=== PATIENT | male | born 1965 | race Caucasian/White ===

== ENCOUNTER 2017-01-17 03:20 | Inpatient (IN) ==
[2017-01-17] MEDS ORDERED: BENTYL IM ONE (04:06)
[2017-01-17 04:24] LABS: MANUAL DIFF NEEDED? NO
[2017-01-17 04:28] LABS: BASO% 0.4 % (0.0-0.8); EOS# 0.01 X1000 (0.0-0.7); EOS% 0.1 % (0.0-10.0); HEMATOCRIT 34.3 % (42.0-52.0); HEMOGLOBIN 11.2 g/dL (14.0-18.0); IMM GRAN# 0.02 X1000 (0.0-0.04); IMM GRAN% 0.2 % (0.0-0.5); LYMPH# 0.56 X1000 (1.2-3.4); LYMPH% 6.7 % (20.5-51.1); MCH 27.9 PG (27-31); MCHC 32.7 g/dL (33-37); MCV 85.3 FL (81-99); MONO# 0.74 X1000 (0.11-0.59); MONO% 8.8 % (1.7-9.3); MPV 9.3 FL (7.4-10.4); NEUT% 83.8 % (42.2-75.2); PLT 415 X1000 (130-400); RBC 4.02 XMIL (4.7-6.1)
[2017-01-17] MEDS ORDERED: ZOFRAN IV ONE (04:48)
[2017-01-17 04:55] LABS: AGAP 24; ALBUMIN 3.8 g/dL (3.5-5.0); ALKALINE PHOSPHATASE 112 U/L (32-122); BUN 15 mg/dL (8-22); CALCIUM 9.5 mg/dL (8.8-10.2); CHLORIDE 83 mmol/L (98-107); COSMO 273; GOT 28 U/L (10-34); GPT 27 U/L (10-44); POTASSIUM 3.1 mmol/L (3.5-5.1); SODIUM 135 mmol/L (136-145); TCO2 28 mmol/L (25-35); TOTAL BILIRUBIN 0.51 mg/dL (0.20-1.00); TOTAL PROTEIN 8.1 g/dL (6.3-8.3)
[2017-01-17] MEDS ORDERED: NS 1,000 ML IV ONE (04:55)
[2017-01-17] MEDS ORDERED: NS + KCL 20 MEQ 1,000 ML IV ONE (06:21)
--- NOTE | 2017-01-17 06:29 | PROVIDER DOCUMENTATION ---
This chart was entered by Rancho Garcia Scribe, acting as scribe for Abhijeet Cruz MD. HPI-Abdominal Pain/GI Problem <Montana Graf - Last Filed: 01/17/17 17:43> - General Source: patient - History of Present Illness-ABD Nature of Presenting Problems: Pt is a 51 yom who presents to ER via EMS with CC of abdominal cramping and feeding tube leakage x3 days. Pt reports that it feels as though there is a knot in his stomach and every time he tries to push food/water through his feeding tube, everything leaks out around the site of his feeding tube. Pt has not had a bm in 2 days and has not had significant nutrition x4 days. Abdominal Pain Onset Location: reports: generalized abdomen Pain Radiation: reports: no radiation Quality of Pain: reports: aching, cramping Severity in ED: reports: severe Onset/Duration: reports: 4 days ago Timing: reports: still present Associated Symptoms: reports: anxiety, constipation, swelling/mass in abdomen, weakness. denies: arm pain, back/neck pain, chest pain, cough, diaphoresis, diarrhea, dizziness, EENT symptoms, fatigue, fever/chills, genitourinary problems, headaches, heartburn, joint pain, loss of appetite, malaise, muscle aches, sinus congestion/drainage, nausea, rash, seizure, shortness of breath, sensory/motor loss, pain with inspiration, syncope, vomiting, trouble walking Last BM: 4 days ago Dark Stools Present?: reports: none noticed Rectal Bleeding: reports: none Rectal Pain: reports: none <Abhijeet Cruz - Last Filed: 02/11/17 16:31> - General Chief Complaint: General Adult Stated Complaint: PEG tube leaking x2 days Time Seen by Provider: 01/17/17 03:49 Allergies/Adverse Reactions: Patient Allergies Allergy/AdvReac Type Severity Reaction Status Date / Time codeine Allergy Mild HIVES Verified 01/17/17 04:21 Sulfa (Sulfonamide Allergy Mild ITCHING Verified 01/17/17 04:21 Antibiotics) Home Medications: Home Medication List Medication Instructions Recorded Confirmed Last Taken Type Mirtazapine [Remeron] 30 mg PO QHS #0 tablet 09/15/16 01/17/17 01/16/17 Rx Temazepam [Restoril] 15 mg PO QHS #0 capsule 09/15/16 01/17/17 01/16/17 Rx Amiodarone [Cordarone] 200 mg PO DIRECTED 11/21/16 01/17/17 01/16/17 History Hydromorphone HCl [Dilaudid SECONDARY ENGLISH TEACHER 6 mg IV DIRECTED PRN PRN 01/17/17 01/17/17 History Vial] Ondansetron [Zofran Odt] 1 tab PO PRN PRN 01/17/17 01/17/17 01/16/17 History Promethazine [Phenergan] 1 tab PO PRN PRN 01/17/17 01/17/17 01/16/17 History Digoxin 125 mcg PO DAILY #30 tablet 01/25/17 Unknown Rx Oxycodone HCl/Acetaminophen 1 each PO Q6H PRN #20 tablet 01/25/17 Unknown Rx [Percocet 7.5-325 mg Tablet] Review of Systems - Adult - REVIEW OF SYSTEMS - ADULT Constitutional: reports: fatique. denies: chills, fever, night sweats, weight gain, weight loss Eyes: reports: no symptoms reported Ears, Nose, Mouth & Throat: reports: no symptoms reported Cardiovascular: denies: chest pain, irregular heart rate, orthopnea, palpitations, poor circulation, syncope Respiratory: denies: chronic cough, cough, dyspnea on exertion, excessive sputum production, hemoptysis, pleurisy, shortness of breath, wheezing Gastrointestinal: reports: abdominal pain, constipation. denies: hematemesis, diarrhea, difficulty swallowing, frequent heartburn, nausea, poor appetite, rectal bleeding, vomiting Genitourinary: reports: no symptoms reported Musculoskeletal: reports: no symptoms reported Integumentary: reports: no symptoms reported Neurological: reports: no symptoms reported Psychiatric: reports: no symptoms reported Endocrine: reports: no symptoms reported Hematologic/Lymphatic: reports: no symptoms reported Allergic/Immunologic: reports: no symptoms reported All Other Systems: Reviewed and Negative <Abhijeet Cruz - Last Filed: 02/11/17 16:31> Past History - Adult - PAST MEDICAL HISTORY-ADULT Review of Records: reports: Nursing Assessment Review, Medications Reviewed Cardiovascular: reports: HTN Endocrine/Immune: reports: Diabetes Other Conditions: reports: other cancer (esophageal) - PRIOR SURGERIES/PROCEDURES Surgical/Procedure History: reports: orthopedic (extremity) - PRIOR HOSPITALIZATIONS Prior Hospitalizations: reports: for similar symptoms - IMMUNIZATION STATUS Childhood Immunizations: See Nurse Assessment Flu Vaccine: See Nurse Assessment <Abhijeet Cruz - Last Filed: 02/11/17 16:31> Physical Exam-General - PHYSICAL EXAM-ADULT Initial Vital Signs Reviewed: Yes - CONSTITUTIONAL General Appearance: appears well, alert, severe distress, thin, anxious, lethargic. negative: no apparent distress, mild distress, moderate distress, cachetic, obese, slow to respond, obtunded, combative - NECK Neck: non-tender, full range of motion, supple. negative: C-spine tenderness, limited range of motion, lymphadenopathy - RESPIRATORY Respiratory: chest non-tender, lungs clear, normal breath sounds, no pleuratic chest pain, no respiratory distress, no accessory muscle use. negative: wheezing - CARDIOVASCULAR Cardiovascular: normal peripheral pulses, regular rate, rhythm. negative: bradycardia, tachycardia, irregularly irregular - GASTROINTESTINAL (ABDOMEN) Abdominal Exam: normal bowel sounds, soft, tenderness (generalized), other ( feeding tube located in TONIA/LQ). 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 negative: normal mood/affect <Abhijeet Cruz - Last Filed: 02/11/17 16:31> Progress - PLAN OF CARE/RESULTS Progress/Plan/Lab Results: Vital Signs - 8 hr 01/17/17 04:13 01/17/17 06:13 Temperature 97.8 F Pulse Rate 84 78 Respiratory Rate 24 34 H Blood Pressure 129/87 144/84 O2 Sat by Pulse Oximetry 95 100 Laboratory Results - last 24 hr 01/17/17 01/17/17 04:10 04:10 WBC 8.40 RBC 4.02 L Hgb 11.2 L Hct 34.3 L MCV 85.3 MCH 27.9 MCHC 32.7 L RDW Std Deviation 19.7 H Plt Count 415 H MPV 9.3 Immature Gran % (Auto) 0.2 Neut % (Auto) 83.8 H Lymph % (Auto) 6.7 L [place] % (Auto) 8.8 Eos % (Auto) 0.1 Baso % (Auto) 0.4 Immature Gran # (Auto) 0.02 Neut # (Auto) 7.04 H Lymph # (Auto) 0.56 L [place] # (Auto) 0.74 H Eos # (Auto) 0.01 Baso # (Auto) 0.03 Sodium 135 L Potassium 3.1 L Chloride 83 L Carbon Dioxide 28 Anion Gap 24 BUN 15 Creatinine 0.4 L Estimated GFR/1.73 m2 > 60 BUN/Creatinine Ratio 38 Glucose 128 H Calculated Osmolality 273 Calcium 9.5 Total Bilirubin 0.51 AST 28 ALT 27 Alkaline Phosphatase 112 Total Protein 8.1 Albumin 3.8 Globulin 4.3 Albumin/Globulin Ratio 0.9 Orders Category Date Time Status CT ABD/PELVIS W/ IV CONT ONLY [CT] Stat Exams 01/17/17 04:46 Taken KUB ABDOMEN [RAD] Stat Exams 01/17/17 04:05 Taken CBC WITH ELECTRONIC DIFF [HEME] Stat Lab 01/17/17 04:10 Completed COMPREHENSIVE METABOLIC PANEL [CHEM] Stat Lab 01/17/17 04:10 Completed 0.9% Sodium Chloride Inj [Ns] 1,000 ml Med 01/17/17 04:55 Discontinued IV 999 mls/hr Dicyclomine [Bentyl] Med 01/17/17 04:06 Discontinued 20 mg IM NOW ONE Hydromorphone [Dilaudid] Med 01/17/17 06:59 Discontinued 2 mg IV NOW ONE Ns + KCl 20 Meq 1,000 ml Med 01/17/17 06:21 Active IV 500 mls/hr Ondansetron [Zofran] Med 01/17/17 04:48 Discontinued 4 mg IV NOW ONE Result Diagrams: 01/17/17 04:10 01/17/17 04:10 - CT/MRI 1 CT Study: Abdomen, Pelvis Impression: Abnormal, Discussed w/Radiology CT Results: Sigmoid obstruction/malignancy, mult esophageal carie - CONSULTS/PCP/HOSPITALIST Notification #1 *Consult/PCP/Hospitalist*: Hospitalist Time Discussed: 07:13 Consult Disposition: Will see in ED, Admit <Montana Graf - Last Filed: 01/17/17 17:43> - PLAN OF CARE/RESULTS Result Diagrams: 01/25/17 06:15 01/25/17 06:15 - XRAY 1 XRAY: Bilateral XRAY Study: Abdomen Impression: See EMR Report <Abhijeet Cruz - Last Filed: 02/11/17 16:31> Departure - Departure Time of Disposition Decision: 07:15 Certified Medical Emergency: Emergent <Montana Graf - Last Filed: 01/17/17 17:43> - Departure Time of Disposition Decision: 07:15 Certified Medical Emergency: Emergent - Critical Care Note This patient required my direct personal management.: Yes Total Time (mins): 60 (dr cruz) Critical Care Statement: This patient required my direct personal management to treat or rule out processes, the absence of which, could potentiallly result in sudden, clinically significant life or limb threatening deterioration. <Abhijeet Cruz - Last Filed: 02/11/17 16:31> - Departure DIAGNOSIS: Colonic obstruction, Metastasis from esophageal cancer Disposition: ADMITTED INPATIENT 09 Condition: Poor This chart was documented by the indicated scribe, (Rancho Garcia Scribe) and accurately reflects the services I performed and decisions made by me, Abhijeet Cruz MD, as attested by the provider's signature.
[2017-01-17] MEDS ORDERED: DILAUDID IV ONE ×2 (06:59→16:59)
[2017-01-17] MEDS ORDERED: PHENERGAN IV ONE (07:35)
[2017-01-17] MEDS ORDERED: SODIUM CHLORIDE 0.9% INJ ONE (07:35)
--- NOTE | 2017-01-17 09:24 | Diag Imaging Result Document ---
PROCEDURE NAME: CT ABD/PELVIS W/ IV CONT ONLY - 01/17/2017 CT ABDOMEN AND PELVIS WITH CONTRAST: TECHNIQUE: Exam performed with intravenous contrast. Oral contrast apparently was administered through the gastrostomy tube just before scanning. A dose-reduction protocol was used. Compared with 09/22/2016. FINDINGS: All the oral contrast that was administered through the gastrostomy tube appears to be located in the stomach. The tip of the gastrostomy tube appears to be located in the lumen of the distal stomach. None of the administered oral contrast has entered the small bowel at the time of scanning. There is thickening with fluid density at or adjacent to the distal esophagus which appears overall mildly increased. The small bowel is not distended. As noted above, none of the administered oral contrast has entered the small bowel. While this may relate to the timing of the exam relative to the oral contrast administration, gastric outlet obstruction is not excluded. The colon is diffusely dilated to the proximal to mid sigmoid colon. The cecum is dilated to approximately 10 cm. Much of the dilated colon is fluid filled. There is an apparent 3.6 x 4.3 cm in axial dimensions obstructing mass of the proximal and mid sigmoid colon. The mass has irregular enhancing margins and low-density center. There is a 1.7-cm daughter lesion or lymph node slightly superior lateral to the sigmoid mass. These are not visible on the previous exam and may relate to metastatic disease, although primary sigmoid malignancy cannot be entirely excluded. There is no gas-containing abscess identified. There is no free air. There is no substantial free fluid seen. There is a 1.5-cm low-density lesion in the left lobe of the liver, which is not discretely visible on the previous exam. There are no acute changes identified in the spleen, adrenal glands or pancreas. The pancreas is atrophic. The gallbladder is surgically absent. The bilateral kidneys enhance homogeneously. There is no hydronephrosis. IMPRESSION: 1. Tip of gastrostomy tube in the lumen of the distal stomach. No passage of oral contrast from the stomach into the small bowel at the time of scanning, which may relate to the timing of the imaging, although gastric outlet obstruction is not excluded. 2. 3.6 x 4.3 cm obstructing mass at the proximal to mid sigmoid colon. The colon is diffusely dilated proximal to the mass, with the cecum measuring 9-10 cm. There is a 1.7-cm lesion slightly superior lateral to the sigmoid mass which may represent daughter lesion or enlarged lymph node. This likely relates to metastatic disease, although primary sigmoid malignancy cannot be entirely excluded. 3. Mild increase in thickening/low density area at the distal esophagus. 4. Apparent development of 1.5-cm low-density lesion in left lobe of liver. Metastatic lesion cannot be excluded. A [facility] physician provided preliminary results at 7:05 a.m. on 01/17/2017. MTDD
--- NOTE | 2017-01-17 09:46 | Diag Imaging Result Document ---
PROCEDURE NAME: KUB ABDOMEN - 01/17/2017 PORTABLE AP SUPINE ABDOMEN: Compared with 11/21/2016. FINDINGS: There is a gastrostomy tube with its tip at the medial left upper quadrant similar to the previous exam. There has been development of gaseous distention of the transverse colon. There is no substantial gaseous small-bowel distention identified. There is sclerosis at the lateral right iliac bone similar to the previous exam. IMPRESSION: Gaseous distention of the transverse colon. Please see report of subsequent CT abdomen/pelvis for further evaluation. MTDD
[2017-01-17] MEDS ORDERED: ROBAXIN 1,000 MG in NS 50 ML IV ONE (10:31)
[2017-01-17] MEDS ORDERED: DILAUDID IV PRN (10:44)
[2017-01-17] MEDS ORDERED: HYDROMORPHONE HCL IV PRN (11:53)
[2017-01-17] MEDS ORDERED: PATIENT'S OWN MED INJ PRN (12:04)
[2017-01-17] MEDS: NS 1,000 ML IV SCH (12:29)
[2017-01-17] MEDS: ZOFRAN IV PRN (12:36)
[2017-01-17] MEDS ORDERED: MEFOXIN 2 GM/NS 2 GM/50 ML IVPB IV ONE (13:07)
[2017-01-17] MEDS ORDERED: ALBUMIN 25% ONE (13:52)
[2017-01-17] MEDS ORDERED: AMIDATE ONE (13:53)
--- NOTE | 2017-01-17 15:20 | HISTORY AND PHYSICAL ---
PRIMARY CARE PROVIDER: Dr. Devika Colon. PRIMARY ONCOLOGIST: Dr. Guevara. CHIEF COMPLAINT: Right lower quadrant abdominal pain and cramping and feeding tube leaking and constipation. HISTORY OF PRESENT ILLNESS: Mr. Ashley is a 51-year-old male who is very ill-appearing with metastatic esophageal cancer that involves the right hip and the bone. He has been receiving right hip radiation treatments from Dr. June and was started on a morphine pump as an outpatient. He presents today with right lower quadrant primarily abdominal cramping that radiates to the left side. He states for the last 4 days his feeding tube when he does his feedings are coming back out. He has not had any bowel movements in 4 days. He has nausea. He denies fever or chills. CT of the abdomen and pelvis shows a sigmoid obstruction that is likely malignancy and multiple esophageal mets. The patient is aware of this. He will be held NPO and PEG will be kept to low intermittent suctioning. No medications. No food via the PEG. Will do a enema to help with constipation and consult general surgery about the sigmoid obstruction. Will give him Robaxin for the abdominal cramps that he is having. PAST MEDICAL HISTORY: 1. 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 2. CAD. 3. Systolic congestive heart failure with EF of 45 to 50%. 4. Paroxysmal atrial fibrillation. SURGICAL HISTORY: 1. Right femur repair. 2. Port-A-Cath placement. 3. Repair of gastric cutaneous fistula. 4. PEG tube placement. SOCIAL HISTORY: Smokes 1 pack per day of cigarettes. Denies alcohol or illicit drug use. Lives at home with 1 of his sisters. FAMILY HISTORY: Noncontributory. ALLERGIES: Codeine and sulfa. HOME MEDICATIONS: 1. Amiodarone 200 mg p.o. not sure if it is daily it says as directed. 2. He uses a Dilaudid SIGNALS INTELLIGENCE ANALYST 6 mg. 3. Remeron 30 mg p.o. nightly. 4. Zofran 1 tab p.o. as needed for nausea. 5. Phenergan 1 tab p.o. as needed for nausea. 6. Restoril 15 mg p.o. nightly. REVIEW OF SYSTEMS: Fourteen point review of systems were complete and all negative except for those mentioned above HPI. LABORATORY DATA: White blood cells 8000, hemoglobin 11, hematocrit 34, platelet count 415,000. Sodium 135, potassium 3.1, BUN 15, creatinine 0.4, glucose 128, total bilirubin 0.51, AST 28, ALT 27. IMAGING: Abdominal pelvic CT sigmoid obstruction with malignancy and multiple esophageal mets. The abdominal x-ray gaseous distention of the transverse colon please see report of subsequent CT abdominal pelvic CT. PHYSICAL EXAMINATION: VITAL SIGNS: Temperature 97.8 degrees, heart rate 83, respiratory rate 23, blood pressure 133/70, O2 saturation 98% on room air. GENERAL: Mr. Jesus Ashley is a 51-year-old male who is very ill-appearing but is able to answer questions appropriately. HEENT: Atraumatic, normocephalic. Pupils equal, round, reactive to light. Extraocular movements intact. Mucous membranes are dry. NECK: No JVD or carotid bruits noted. CARDIOVASCULAR: S1, S2. Regular rate and rhythm. No rubs, gallops, murmurs. PULMONARY: Clear to auscultation. Bilateral breath sounds. No accessory muscle use or work of breathing noted. Decreased in the bases. GI: Mildly distended, very tender throughout, very hypoactive bowel sounds. PEG tube with excoriation noted around it and redness. EXTREMITIES: Trace edema. +2 dorsalis and radial pulses. NEURO: Oriented x3. Moves all extremities equally. SKIN: Cool, dry and intact. Very pale. ASSESSMENT AND PLAN: 1. Sigmoid obstruction could possibly be malignancy. He does have multiple esophageal metastases. Will consult Dr. Guevara and consult GI surgery. Will keep him NPO and PEG tube to low intermittent suction and IV Robaxin for the abdominal cramping. 2. Constipation. Will give nothing through the PEG tube as will do soapsuds enema to assist with bowel movement. 3. Esophageal stage IV cancer with metastasis to the right hip bone could possibly now be in the sigmoid colon. 4. Chronic pain syndrome. Continue with Dilaudid. Apparently he had a home Dilaudid SIGNALS INTELLIGENCE ANALYST. 5. Anemia that is chronic in nature, is actually much improved since his last admit. It went from 28 up to 34 in a month. 6. Hypokalemia. He did receive 20 of KCl through his IV fluids. 7. Dehydration. Will continue with IV fluid hydration. 8. Deep venous thrombosis prophylaxis. SCDs. 9. Gastrointestinal prophylaxis. Proton pump inhibitor. Protonix IV. 10. Tobacco abuse. Cessation discussed. Dictated by GORDON Ponce for Jaguar Ross MD cc: GORDON Ponce
--- NOTE | 2017-01-17 15:47 | CONSULTATION ---
DATE OF CONSULTATION: 01/17/2017 REQUESTING PHYSICIAN: Dr. Cruz with the hospitalist service. HISTORY OF PRESENT ILLNESS: A 51-year-old male known to my group who has metastatic esophageal cancer, and status post open gastrostomy tube placed by my partner, Dr. Pemberton, several months ago, presenting to the ER department complaining of abdominal cramping and feeding tube leakage x3 days. He has had difficulties with feeding tube in the past, but felt more cramping sensation and he reports he has not had a bowel movement in last 2 days. He was seen in the emergency department, found have likely metastatic disease blocking his colon causing obstruction in his sigmoid colon. This essentially is starting to develop a closed loop obstruction. He was admitted and I was consulted. He is still in significant pain, but does have history of chronic pain syndrome. He is in no acute distress right now, but he does have significant tenderness. PAST MEDICAL HISTORY: 1. Coronary artery disease. Cardiomyopathy. EF 45%. 2. Metastatic esophageal cancer with metastatic disease to the bone. 3. Previous infections to achieve his G-tube site. 4. Chronic pain. PAST SURGICAL HISTORY: 1. Laparoscopic closure of gastrostomy. 2. Repair of gastrocutaneous fistula. 3. Port-A-Cath placement. 4. Open G-tube placement. 5. Dictation of right proximal femur. SOCIAL HISTORY: Denies alcohol, tobacco or illicit drugs. ALLERGIES: Codeine and sulfa. HOME MEDICATIONS: Reviewed. Of note, patient does have an home UNDERCOLLAR MAKER of Dilaudid. REVIEW OF SYSTEMS: A full 10 point review of systems obtained, negative except as specified in HPI. FAMILY HISTORY: Reviewed with patient and noncontributory. PHYSICAL EXAMINATION: Vital Signs: The patient is currently afebrile. His vital signs have been stable. General: No acute distress, but cachectic man, looks stated age. HEENT: Normocephalic, atraumatic. Pupils equal, round, reactive to light. Mucous membranes moist. Oropharynx benign. Neck: Supple. Trachea midline. Cardiovascular: Regular rate and rhythm. Lungs: Grossly clear. Abdomen: Previous surgical incisions noted. Abdomen is tympanic to percussion. He has tenderness right lower quadrant. No peritoneal signs. Extremities: Moves all extremities. Neurologic: Grossly intact. Skin: No signs of jaundice. Vascular: All extremities perfused. LABORATORY/RADIOLOGY: Reviewed. White blood cell count 4, hematocrit 34, platelet count 415,000/ remainder of labs reviewed. CT scan independently reviewed and radiology report reviewed. ASSESSMENT/PLAN: A 51-year-old gentleman with likely metastatic esophageal cancer causing blockage of the sigmoid colon. 1. Metastatic esophageal cancer. At this time, unresectable. He is on palliative treatment. Dr. Guevara is seeing him and we will continue that therapy. 2. Obstructing colon mass. At this time, patient is developing a closed loop obstruction given his competent ileocecal valve. Given this and his overall prognosis, the best thing would be a palliative diverting loop colostomy. I discussed this with the patient. He understands this. We will plan on surgical intervention today. The risks, benefits, alternatives for the procedure were discussed. All questions were answered. We will plan on surgical intervention. cc: Vincenzo Henao MD
[2017-01-17] MEDS ORDERED: DILAUDID ONE (15:59)
[2017-01-17] MEDS ORDERED: KETAMINE (DOSE) ONE (16:00)
--- NOTE | 2017-01-17 16:30 | OPERATIVE NOTE ---
PROCEDURE DATE: 01/17/2017 PREOPERATIVE DIAGNOSIS: Obstructing metastatic esophageal cancer with lesion causing the obstruction of the sigmoid colon. POSTOPERATIVE DIAGNOSES: 1. Obstructing metastatic esophageal cancer with lesion causing the obstruction of the sigmoid colon. 2. Questionable carcinomatosis. PROCEDURE: 1. Exploratory laparotomy. 2. Diverting loop transverse colostomy. SURGEON: Vincenzo Henao MD. CREAM HAULER: None. ANESTHESIA: General endotracheal. INTRAOPERATIVE FINDINGS: As above. SPECIMENS: Peritoneal implant. ESTIMATED BLOOD LOSS: 20 mL. BRIEF HISTORY: The patient is a 51-year-old male, well known to my group. He has had unresectable esophageal cancer. He has had previous G-tubes placed but now presented with essentially a closed loop obstruction from what appears to be a metastatic lesion to his sigmoid colon likely from his esophageal cancer. This is causing a significant obstruction. Given this, we felt a palliative loop diverting colostomy would be the best thing. This was discussed with the patient. All questions were answered. DESCRIPTION OF PROCEDURE: After informed consent was obtained, patient was brought to the operative theater and transferred to the operating room table and placed in the supine position. General endotracheal anesthesia was then performed without complication. A formal time-out was then performed confirming patient, date, and procedure. All were in agreement. At that time, attention was given to the abdomen. A standard midline incision was made after the abdomen was prepped and draped and after the time-out, through which we entered into the peritoneum. We encountered a distended colon. The transverse colon was amenable to a loop transverse colostomy. We made an incision to the right upper quadrant. We did notice multiple peritoneal studs which took 1 biopsy of. We did have to make a small hole into the colon to deflated it to allow to bring up through the ostomy. We did this with controlled suction and controlled the drainage with suction. We placed a [id number] stitch to close the hole. We then brought up the colon through the previously made fascial defect in the right upper quadrant. The defect itself was also able to accommodate 2 fingers. We brought it up. Closed the peritoneum and closed the fascia with interrupted #1 Vicryl. We did this given his malnutrition and the concern for potential dehiscence down the road. We then closed the skin with nicho. We then matured the ostomy in a standard fashion. Both lumens were patent. We placed a T-bar across the mesentery and placed an ostomy appliance. The patient tolerated procedure well and was transferred to recovery room in stable condition. Postoperatively, we will keep him on antibiotics 24 hours and wait for the return of bowel function. cc: Vincenzo Henao MD
[2017-01-17] MEDS ORDERED: ZOFRAN ODT PO PRN (16:39)
[2017-01-17 17:11] LABS: URINE MICRO REVIEW NEEDED? NO; URINE SOURCE CATH
[2017-01-17 17:16] LABS: BILIRUBIN URINE NEGATIVE (NEGATIVE); BLOOD URINE NEGATIVE (NEGATIVE); COLOR YELLOW; GLUCOSE URINE NEGATIVE (NEGATIVE); LEUKOCYTES URINE NEGATIVE (NEGATIVE); NITRITE URINE NEGATIVE (NEGATIVE); PH URINE 6.5; PROTEIN URINE TRACE mg/dL (NEGATIVE); SP GRAVITY URINE 1.026; TURBIDITY URINE CLEAR (CLEAR); UROBILINOGEN URINE NORMAL (NORMAL)
[2017-01-17 17:18] LABS: UR EPITHELIAL CELLS <10 /HPF (<10); URINE BACTERIA NEGATIVE /HPF; URINE RBC <10 /HPF (<10); URINE WBC <10 /HPF (<10)
[2017-01-17] MEDS: PHENERGAN IV PRN (18:42)
[2017-01-17] MEDS ORDERED: SODIUM CHLORIDE 0.9% 10 ML ONE (19:35)
[2017-01-17] MEDS: RESTORIL PO SCH (20:29)
[2017-01-17] MEDS: HEPARIN SUBQ SCH (20:29)
[2017-01-17] MEDS: SODIUM CHLORIDE 0.9% INJ SCH (20:29)
[2017-01-17] MEDS: REMERON PO SCH (20:29)
[2017-01-17] MEDS: PROTONIX IV SCH (20:29)
[2017-01-17] MEDS: MEFOXIN 2 GM/NS 2 GM/50 ML IVPB IV SCH (20:37)
[2017-01-18] MEDS ORDERED: NICODERM PATCH TD ONE (02:15)
[2017-01-18] MEDS: MEFOXIN 2 GM/NS 2 GM/50 ML IVPB IV SCH ×3 (03:40→13:25)
[2017-01-18] MEDS: NS 1,000 ML IV SCH ×3 (03:41→16:10)
--- NOTE | 2017-01-18 06:17 | PROGRESS NOTE ---
DATE: 01/18/2017 SUBJECTIVE: Patient doing okay. He is having ostomy output already. No major issues reported by the nursing staff. OBJECTIVE: Vital Signs: Patient is currently afebrile. His vital signs have been stable. General: No acute distress. Alert, interactive. Cardiovascular: Regular rate and rhythm. Lungs: Grossly clear. Abdomen: Soft, appropriately tender. Ostomy in the right upper quadrant functioning. Gastric tube to the left upper quadrant. Skin: Some skin excoriations. ASSESSMENT/PLAN: A 51-year-old male with metastatic esophageal cancer status post diverting loop colostomy for the sigmoid obstruction. 1. Postoperative state at this time, patient doing relatively well. We will ask dietitian to see him for the evaluation for his tube feeds. I will let him have some clear liquids for right now. We will follow up with the pathology from the peritoneal implants. 2. Metastatic esophageal cancer. At this time she is being seen by Dr. Guevara. We will follow and defer to the oncology team. 3. Multiple medical comorbidities to be managed by the hospitalist service. cc: Vincenzo Henao MD
[2017-01-18] MEDS: SODIUM CHLORIDE 0.9% INJ PRN (06:58)
[2017-01-18] MEDS: HEPARIN SUBQ SCH ×3 (06:58→21:38)
[2017-01-18] MEDS: PHENERGAN IV PRN ×2 (06:59→16:55)
[2017-01-18] MEDS ORDERED: BLISTEX MEDICATED BERRY LIP BALM TOP ONE (07:52)
[2017-01-18] MEDS: PROTONIX IV SCH ×2 (08:27→21:38)
[2017-01-18] MEDS ORDERED: NEOSTIGMINE ONE (08:56)
[2017-01-18] MEDS ORDERED: ZOFRAN ONE (08:56)
[2017-01-18] MEDS ORDERED: TORADOL ONE (08:56)
[2017-01-18] MEDS ORDERED: QUELICIN (DOSE) ONE (08:57)
[2017-01-18] MEDS ORDERED: ANESTHESIA PB SET 88 IN 5742 ONE (08:57)
[2017-01-18] MEDS ORDERED: DECADRON ONE (08:57)
[2017-01-18] MEDS ORDERED: ROBINUL ONE (08:57)
[2017-01-18] MEDS ORDERED: OFIRMEV 1000 MG/ISOTONIC SOLN 1,000 MG/100 ML BOTTLE ONE (08:57)
[2017-01-18] MEDS ORDERED: LR 1,000 ML ONE (08:57)
[2017-01-18] MEDS ORDERED: ZEMURON ONE (08:57)
[2017-01-18] MEDS ORDERED: XYLOCAINE-MPF 2% ONE (08:57)
[2017-01-18 09:40] LABS: INR 1.26; PROTIME 13.4 Seconds (9.2-11.7); PTT 30.6 Seconds (22.0-36.0)
[2017-01-18 09:51] LABS: HEMATOCRIT 25.9 % (42.0-52.0); IMM GRAN# 0.03 X1000 (0.0-0.04); IMM GRAN% 0.3 % (0.0-0.5); LYMPH# 0.38 X1000 (1.2-3.4); MANUAL DIFF NEEDED? YES; MCH 27.8 PG (27-31); MCHC 30.9 g/dL (33-37); MCV 89.9 FL (81-99); MONO# 0.62 X1000 (0.11-0.59); MONO% 6.5 % (1.7-9.3); MPV 8.4 FL (7.4-10.4); NEUT% 89.2 % (42.2-75.2); PLT 234 X1000 (130-400); RBC 2.88 XMIL (4.7-6.1)
[2017-01-18 09:53] LABS: AGAP 13; ALBUMIN 2.8 g/dL (3.5-5.0); ALKALINE PHOSPHATASE 72 U/L (32-122); BUN 14 mg/dL (8-22); CALCIUM 8.1 mg/dL (8.8-10.2); CHLORIDE 95 mmol/L (98-107); COSMO 272; GOT 24 U/L (10-34); GPT 18 U/L (10-44); MAGNESIUM 2.2 mg/dL (1.5-2.7); POTASSIUM 4.3 mmol/L (3.5-5.1); SODIUM 136 mmol/L (136-145); TCO2 28 mmol/L (25-35); TOTAL BILIRUBIN 0.35 mg/dL (0.20-1.00)
[2017-01-18 10:05] LABS: LYMPHS 6 % (21-51); MONO 1 % (1-9)
[2017-01-18 10:06] LABS: HYPOCHROM 1+
[2017-01-18] MEDS: CORDARONE PO SCH (10:06)
[2017-01-18] MEDS: BACTROBAN OINTMENT TOP SCH ×2 (13:50→21:39)
--- NOTE | 2017-01-18 14:23 | PROGRESS NOTE ---
DATE: 01/18/2017 SUBJECTIVE: The patient is resting comfortably in bed. He has no complaints at this time. OBJECTIVE: Vital Signs: Temperature 97.6 degrees, blood pressure 112/53, heart rate 62, respirations 17. O2 saturations 98% on room air. General: This is a elderly male, lying in bed, in no acute distress. Head: Normocephalic, atraumatic. Heart: S1, S2 normal. Regular rate and rhythm. Lungs: Clear to auscultation bilaterally. Abdomen: Positive bowel sounds. Soft, nontender. Extremities: No edema. No cyanosis. LABS: White blood cell count 9.5, hemoglobin 8, hematocrit 25, platelets 234,000. INR 1.26. Sodium 136, potassium 4.3, chloride 95, CO2 28. BUN 14, creatinine 0.4, glucose 94. ASSESSMENT AND PLAN: 1. Status post exploratory laparotomy with diverting loop transverse colostomy secondary to obstruction of the sigmoid colon. Management as per the general surgeon. 2. Metastatic esophageal cancer. Aware. 3. Anemia. The patient's hemoglobin and hematocrit has dropped since yesterday. We will continue to monitor this closely. 4. Atrial fibrillation. Continue on amiodarone. 5. Deep vein thrombosis prophylaxis. Continue on heparin 5000 units subcutaneous every 8 hours. cc: Marianne Hudson MD
[2017-01-18] MEDS ORDERED: NARCAN IV PRN (15:20)
[2017-01-18] MEDS: DILAUDID PCA VIAL IV PRN ×2 (19:01→23:01)
[2017-01-18] MEDS: REMERON PO SCH (21:38)
[2017-01-18] MEDS: RESTORIL PO SCH (21:38)
[2017-01-18] MEDS: SODIUM CHLORIDE 0.9% INJ SCH (21:38)
[2017-01-18] MEDS: ROBAXIN 1,000 MG in NS 50 ML IV PRN (21:49)
[2017-01-19] MEDS: DILAUDID PCA VIAL IV PRN ×5 (03:33→20:47)
[2017-01-19] MEDS: HEPARIN SUBQ SCH ×3 (05:03→21:02)
[2017-01-19] MEDS: NS 1,000 ML IV SCH ×4 (05:03→20:51)
[2017-01-19] MEDS: SODIUM CHLORIDE 0.9% INJ PRN ×2 (05:03→18:25)
[2017-01-19] MEDS: PHENERGAN IV PRN ×3 (05:03→18:25)
[2017-01-19] MEDS: ROBAXIN 1,000 MG in NS 50 ML IV PRN ×3 (05:42→18:26)
[2017-01-19 06:39] LABS: BASO% 0.1 % (0.0-0.8); EOS# 0.08 X1000 (0.0-0.7); HEMATOCRIT 29.2 % (42.0-52.0); HEMOGLOBIN 9.1 g/dL (14.0-18.0); IMM GRAN# 0.03 X1000 (0.0-0.04); IMM GRAN% 0.4 % (0.0-0.5); LYMPH# 0.51 X1000 (1.2-3.4); LYMPH% 6.5 % (20.5-51.1); MANUAL DIFF NEEDED? YES; MCH 27.7 PG (27-31); MCHC 31.2 g/dL (33-37); MONO# 0.48 X1000 (0.11-0.59); MONO% 6.1 % (1.7-9.3); MPV 9.2 FL (7.4-10.4); NEUT% 85.9 % (42.2-75.2); PLT 229 X1000 (130-400); RBC 3.28 XMIL (4.7-6.1)
[2017-01-19 06:51] LABS: AGAP 11; ALBUMIN 3.1 g/dL (3.5-5.0); ALKALINE PHOSPHATASE 76 U/L (32-122); BUN 9 mg/dL (8-22); CALCIUM 8.2 mg/dL (8.8-10.2); CHLORIDE 94 mmol/L (98-107); COSMO 263; GOT 23 U/L (10-34); GPT 18 U/L (10-44); POTASSIUM 4.1 mmol/L (3.5-5.1); SODIUM 132 mmol/L (136-145); TCO2 27 mmol/L (25-35); TOTAL BILIRUBIN 0.31 mg/dL (0.20-1.00); TOTAL PROTEIN 6.5 g/dL (6.3-8.3)
[2017-01-19 07:28] LABS: BANDS 8 % (0-1); LYMPHS 4 % (21-51); MONO 4 % (1-9)
--- NOTE | 2017-01-19 07:50 | PROGRESS NOTE ---
DATE: 01/19/2017 SUBJECTIVE: Patient doing well. No major issues. OBJECTIVE: Vital Signs: Patient is currently afebrile. His vital signs stable. General: No acute distress. Cardiovascular: Regular rate and rhythm. Lungs: Grossly clear. Abdomen: Soft, appropriately tender. Ostomy functioning. ASSESSMENT AND PLAN: A 51-year-old, male with metastatic esophageal cancer, now with a diverting loop colostomy from obstruction from metastatic disease. Diverting loop colostomy: At this time, will need to at least keep the patient here until Wednesday so we could remove the bar from his loop colostomy to give it adequate time to keep positioned. Will have enterostomal therapy to teach him ostomy care. We will continue to follow with you. cc: Vincenzo Henao MD
[2017-01-19] MEDS: CORDARONE PO SCH (08:05)
[2017-01-19] MEDS: PROTONIX IV SCH ×2 (08:06→21:02)
[2017-01-19] MEDS: SODIUM CHLORIDE 0.9% INJ SCH ×3 (08:06→21:02)
[2017-01-19] MEDS: BACTROBAN OINTMENT TOP SCH ×2 (08:07→21:03)
[2017-01-19] MEDS ORDERED: ROXICET PO PRN (09:55)
[2017-01-19] MEDS: ZOFRAN IV PRN ×2 (10:33→16:41)
[2017-01-19] MEDS: PERCOCET-5 FT PRN ×3 (10:54→18:25)
[2017-01-19] MEDS: BLISTEX MEDICATED BERRY LIP BALM TOP PRN (12:09)
--- NOTE | 2017-01-19 13:37 | PROGRESS NOTE ---
DATE: 01/19/2017 SUBJECTIVE: The patient complains of abdominal pain and states that he would like his pain medication increased. OBJECTIVE: Vital Signs: Temperature 97.9 degrees, blood pressure 135/82, heart rate 100, respirations 18, O2 saturation is 100% on room air. General: This is a chronically ill- appearing, elderly male, lying in bed in no acute distress. Head: Normocephalic, atraumatic. Heart: S1, S2. Normal. Regular rate and rhythm. Lungs: Clear to auscultation bilaterally. Abdomen: Positive bowel sounds. Soft. Tender to palpation. Extremities: No edema. No cyanosis. Neurologic: The patient is alert and oriented x3. LABS: White blood cell count 7.8, hemoglobin 9.1, hematocrit 29, platelets 229. Sodium 132, potassium 4.1, chloride 94, CO2 27, BUN 9, creatinine 0.3, glucose 90. ASSESSMENT AND PLAN: 1. Status post exploratory laparotomy with diverting loop transverse colostomy secondary to obstruction of the sigmoid colon. Management as per the general surgeon. 2. Metastatic esophageal cancer. Aware. 3. Chronic pain secondary to metastatic cancer. The patient is currently on a Dilaudid MANAGER PARK. We will continue this, and I will add Percocet for breakthrough pain. 4. Atrial fibrillation. Continue on amiodarone. 5. Deep vein thrombosis prophylaxis. Continue on heparin DISPOSITION: The patient will be discharged home with home health services. cc: Marianne Hudson MD MTDD
[2017-01-19] MEDS: VISINE OPH DROPS OPH PRN (15:07)
--- NOTE | 2017-01-19 16:25 | CONSULTATION ---
DATE OF CONSULTATION: 01/18/2017 ADMITTING PHYSICIAN: . REQUESTING PHYSICIAN: . PRIMARY CARE PROVIDER: Dr. Devika Colon. PRIMARY ONCOLOGIST: Dr. Guevara. We appreciate this consult. CHIEF COMPLAINT: Abdominal pain. HISTORY OF PRESENT ILLNESS: Mr. Jesus Ashley is a 51-year-old, male, well known to us with a history of stage IV esophageal cancer with right hip metastasis. The patient is currently being treated with Keytruda, last dose being 12/31/2016. Additionally, the patient has been receiving right hip radiation treatments per Dr. June and has been on a morphine pump as an outpatient secondary to significant pain. The patient presented to [facility] emergency department secondary to severe right lower quadrant abdominal pain and cramping that radiated to the left side. He reported that the last 4 days his feedings via PEG tube were coming back out. Additionally, he reports that he had not had any bowel movement for the past [address] of the abdomen and pelvis was obtained and revealed a sigmoid obstruction likely secondary to malignancy and metastasis. The patient was held NPO with the PEG tube kept to low intermittent suctioning. He was begun on Robaxin secondary to abdominal cramps. The patient did undergo surgery by Dr. Henao with a diverting colostomy placed. The patient is currently lying supine in bed in no immediate distress. PAST MEDICAL HISTORY: 1. Stage IV esophageal cancer with metastasis to right hip. 2. Coronary artery disease. 3. Systolic congestive heart failure with an ejection fraction of 45%-50%. 4. Paroxysmal atrial fibrillation. PAST SURGICAL HISTORY: 1. Right femur repair. 2. Port-A-Cath placement. 3. Repair of gastrocutaneous fistula. 4. PEG tube placement. FAMILY HISTORY: Negative for any hematologic or oncologic problem. SOCIAL HISTORY: The patient smokes 1 pack of cigarettes daily. He does not use alcohol or illicit drugs. MEDICATIONS ON ADMISSION: 1. Amiodarone. 2. Dilaudid TYRE BUILDER. 3. Remeron. 4. Zofran. 5. Phenergan. 6. Restoril. ALLERGIES: Codeine and sulfa. REVIEW OF SYSTEMS: A 14 point review of systems was obtained and is negative except for as mentioned in the HPI. PHYSICAL EXAMINATION: General: Mr. Ashley is a cachectic, 51-year-old, male, lying supine in bed in no immediate distress. Vital Signs: Temperature 97.9 degrees, blood pressure 106/58, heart rate 69, respirations 14, O2 saturation is 96% on room air. HEENT: Normocephalic, atraumatic. Mucous membranes are pink and somewhat dry. Sclerae are anicteric. Extraocular movements intact. Neck: Supple. Lungs: Clear to auscultation bilaterally. Chest expansion is equal bilaterally. CV: S1 and S2 are heard without murmur, rub, or gallop. Abdomen: Soft, slightly distended. Tender at the incisional sites. Bowel sounds are positive. PEG tube and colostomy are intact. Extremities: Without clubbing, cyanosis, or edema. Dermatologic: No rashes, bruises, or lesions. Neurologic: The patient is awake, alert, and oriented x3. He has no focal deficit at this time. LABORATORY DATA: Hemoglobin 11.2, hematocrit 34.3, white blood cell count 8.4, platelets 415,000, ANC 7.04. Sodium 135, potassium 3.1, chloride 83, CO2 is 28, BUN 15, creatinine 0.4, glucose 128. Urinalysis is negative for a urinary tract infection. CT of the abdomen revealed a 3.6 x 4.3 cm obstructing mass proximal to the mid sigmoid colon with distal esophageal density and a left lobe liver lesion of 1.5 cm in diameter. ASSESSMENT AND PLAN: 1. Stage IV esophageal cancer with right hip metastasis and recent sigmoid colon metastasis. We will hold treatment at this time until the patient's acute illness has passed. 2. Sigmoid obstruction in patient with diffuse peritoneal metastasis and obstructing mass proximal to the mid sigmoid colon measuring 3.6 x 4.3 cm, status post surgical resection with diverting colostomy placed. 3. Chronic pain. Currently on a morphine pump. 4. Malnutrition. The patient is to begin on percutaneous endoscopic gastrostomy tube feedings again status post surgery. 5. We will follow along with you and make further recommendations pending outcomes. The above reflects the history, examination, assessment, and plan of Dr. Guevara. Dictated by GORDON Reyes for Darci Guevara MD cc: GORDON Reyes MD
[2017-01-19] MEDS: RESTORIL PO SCH (20:51)
[2017-01-19] MEDS: REMERON PO SCH (21:01)
[2017-01-20] MEDS: DILAUDID PCA VIAL IV PRN ×6 (01:15→22:43)
[2017-01-20] MEDS: PERCOCET-5 FT PRN ×5 (01:17→19:22)
[2017-01-20] MEDS: ROBAXIN 1,000 MG in NS 50 ML IV PRN ×3 (02:11→22:02)
[2017-01-20] MEDS: PHENERGAN IV PRN ×3 (02:40→15:14)
[2017-01-20] MEDS ORDERED: CARDIZEM 100 MG/NS 100 MG/100 ML IVPB IV SCH ×2 (04:05→04:24)
[2017-01-20] MEDS ORDERED: CARDIZEM IV ONE (04:05)
[2017-01-20] MEDS ORDERED: CARDIZEM 100 MG/NS 100 MG/100 ML IVPB ONE (04:12)
[2017-01-20] MEDS ORDERED: CARDIZEM ONE (04:13)
[2017-01-20] MEDS: NS 1,000 ML IV SCH ×2 (04:22→06:15)
[2017-01-20] MEDS: HEPARIN SUBQ SCH ×3 (04:25→21:18)
[2017-01-20] MEDS ORDERED: LANOXIN IV ONE (05:33)
[2017-01-20] MEDS ORDERED: NS 500 ML IV ONE (05:35)
--- NOTE | 2017-01-20 05:38 | EKG Report ---
Test Performed on : 01/20/2017 02:56:52 AM Test Reason : No Order in [employer] Blood Pressure : / mmHG Vent. Rate : 185 BPM Atrial Rate : 227 BPM P-R Int : 000 ms QRS Dur : 080 ms QT Int : 252 ms P-R-T Axes : 000 036 115 degrees QTc Int : 442 ms Atrial fibrillation. with rapid ventricular response. Low voltage QRS Septal infarct (cited on or before 03-SEP-2015) ST \T\ T wave abnormality, consider lateral ischemia Abnormal ECG When compared with ECG of 20-JAN-2017 02:56, (Unconfirmed) No significant change was found Confirmed by Raul DAVIDSON, Chon Templeton ([id number]) on 01/20/2017 5:53:23 PM
--- NOTE | 2017-01-20 06:42 | PROGRESS NOTE ---
DATE: 01/20/2017 SUBJECTIVE: Patient transported early this morning down to the ICU after going into atrial fibrillation with rapid ventricular response. He is off his Cardizem drip already. No other issues. Patient is doing fine, having ostomy output, tolerating his feeds. No major issues reported by the nursing staff at this point. OBJECTIVE: Vital Signs: Most recent vital signs are temperature 98.5 degrees, pulse 105, respiratory rate 16, blood pressure 124/65, O2 saturation 97%. Abdominal Examination: Dressing in place. The incision is healing well. Colostomy in right upper quadrant healing well. Still has bar in place. Ostomy appears viable. ASSESSMENT/PLAN: A 51-year-old, male with metastatic esophageal cancer, now with a diverting loop colostomy from obstructing metastatic disease. Diverting loop colostomy. At this time, patient is doing all right. He seemed to improve from his episode of atrial fibrillation with rapid ventricular response. We will need to keep him at least until Wednesday to remove is bar from his colostomy. Otherwise, continue current treatment. cc: Vincenzo Henao MD
--- NOTE | 2017-01-20 08:30 | EKG Report ---
Test Performed on : 01/20/2017 08:14:41 AM Test Reason : afib Blood Pressure : / mmHG Vent. Rate : 067 BPM Atrial Rate : 067 BPM P-R Int : 142 ms QRS Dur : 088 ms QT Int : 424 ms P-R-T Axes : 036 052 055 degrees QTc Int : 448 ms Normal sinus rhythm. with sinus arrhythmia. Anteroseptal infarct (cited on or before 03-SEP-2015) Abnormal ECG When compared with ECG of 20-JAN-2017 02:56, (Unconfirmed) Sinus rhythm. has replaced Atrial fibrillation. Vent. rate has decreased BY [address] no longer depressed in Lateral leads Nonspecific T wave abnormality no longer evident in Inferior leads T wave inversion no longer evident in Lateral leads Confirmed by Raul DAVIDSON, Chon Templeton ([id number]) on 01/20/2017 5:55:52 PM
[2017-01-20] MEDS: PROTONIX IV SCH ×2 (08:42→21:16)
[2017-01-20] MEDS: BACTROBAN OINTMENT TOP SCH ×2 (08:42→21:18)
[2017-01-20] MEDS: LANOXIN IV SCH (08:42)
[2017-01-20] MEDS: SODIUM CHLORIDE 0.9% INJ SCH ×2 (08:42→21:17)
[2017-01-20] MEDS: CORDARONE PO SCH (08:43)
[2017-01-20 09:45] LABS: MANUAL DIFF NEEDED? NO
[2017-01-20 09:50] LABS: BASO% 0.4 % (0.0-0.8); EOS# 0.55 X1000 (0.0-0.7); EOS% 6.8 % (0.0-10.0); IMM GRAN# 0.03 X1000 (0.0-0.04); IMM GRAN% 0.4 % (0.0-0.5); LYMPH# 0.43 X1000 (1.2-3.4); LYMPH% 5.3 % (20.5-51.1); MCH 27.4 PG (27-31); MCV 88.4 FL (81-99); MONO# 0.51 X1000 (0.11-0.59); MONO% 6.3 % (1.7-9.3); MPV 9.1 FL (7.4-10.4); NEUT% 80.8 % (42.2-75.2); PLT 222 X1000 (130-400); RBC 3.28 XMIL (4.7-6.1)
[2017-01-20 10:07] LABS: AGAP 9; BUN 4 mg/dL (8-22); CALCIUM 7.6 mg/dL (8.8-10.2); CHLORIDE 95 mmol/L (98-107); COSMO 261; POTASSIUM 3.5 mmol/L (3.5-5.1); SODIUM 130 mmol/L (136-145); TCO2 26 mmol/L (25-35)
--- NOTE | 2017-01-20 10:58 | Diag Imaging Result Document ---
PROCEDURE NAME: CHEST-1 VIEW - 01/20/2017 AP PORTABLE CHEST AT 1036 HOURS: There is more atelectasis over the left base than on 11/21/2016. There is no evidence of acute disease on the right side. IMPRESSION: Minimal left basilar atelectasis.
[2017-01-20] MEDS: ZOFRAN IV PRN ×2 (11:11→18:21)
--- NOTE | 2017-01-20 11:19 | PROGRESS NOTE ---
DATE: 01/20/2017 SUBJECTIVE: The patient went into atrial fibrillation with RVR last night and was transferred to the ICU. This morning, it appears that the patient is in normal sinus rhythm. He states that he feels a lot better this morning and wants to try and work with physical therapy. OBJECTIVE: Vital Signs: Temperature 96, blood pressure 113/65, heart rate 70, respirations 20, O2 saturations 96% on room air. General: This is an elderly male lying in bed, in no acute distress. Head: Normocephalic, atraumatic. Heart: S1, S2. Normal. Regular rate and rhythm. Lungs: Clear to auscultation. No wheezing. No rales. Abdomen: Positive bowel sounds. Soft, nontender, nondistended. Extremities: No edema. No cyanosis. No calf tenderness. Neurologic: The patient is alert and oriented x3. LABS: White blood cell count 8.1, hemoglobin 9, hematocrit 29, platelets 222. Sodium 130, potassium 3.5, chloride 95, CO2 of 26, BUN 4, creatinine 0.2, glucose 155, calcium 7.6. ASSESSMENT AND PLAN: 1. Paroxysmal atrial fibrillation. The patient is on amiodarone. He appears to be in normal sinus rhythm at this time. We will await any further recommendations from the nylon hot wire cutter. 2. Metastatic esophageal cancer. Aware. 3. Status post exploratory laparotomy with a diverting loop transverse colostomy secondary to obstruction of the sigmoid colon. Management as per the general surgeon. 4. Chronic pain secondary to metastatic esophageal cancer. Continue on the Dilaudid patient- controlled analgesia. 5. Deep vein thrombosis prophylaxis. Continue on heparin 5000 units subcutaneous every 8 hours. 6. The patient is stable for transfer to the medical floor. cc: Marianne Hudson MD
--- NOTE | 2017-01-20 13:38 | ECHO REPORT ---
ORDER DATE: 01/20/2017 MEASUREMENTS: Left ventricular end-diastolic diameter 5.4. End-systolic diameter 3.5. Posterior wall thickness 0.9. Septal thickness 0.9. Left atrium 3.9. Aortic root 3.2 SUMMARY: 1. Adequate quality study. 2. Aortic valve was trileaflet and opens normally on 2-dimensional images. Mitral, tricuspid and pulmonic valves are without obstruction abnormality with trace mitral regurgitation and trace tricuspid regurgitation. Estimated systolic PA pressure by Doppler is 30 mmHg. The aortic root is normal in size per 3. Normal left ventricular dimensions demonstrated. Estimated left ejection fraction approximately 60%. Appears to be a small area of severe hypokinesis in the apical part of the apical septum. Left atrium, right atrium, and right ventricle are normal in size with grossly preserved right ventricular systolic performance. 3. No pericardial effusion. 4. Appearance of inferior vena cava suggests normal central venous pressure. CONCLUSIONS: 1. No significant valvular abnormality. 2. Normal left ventricular ejection fraction. There appears to be a small area of severe hypokinesis in the more apical part of the apical septum. cc: MD Marianne Burgos MD
--- NOTE | 2017-01-20 18:27 | CONSULTATION ---
DATE OF CONSULTATION: 01/20/2017 REQUESTING PHYSICIAN: Hospitalist service. REASON FOR CONSULTATION: Atrial fibrillation. HISTORY OF PRESENT ILLNESS: The patient is a 51-year-old male known to me from office evaluation. He was admitted to the hospital on January 17 with symptoms of a bowel obstruction. He taken to the operating room by Dr. Henao on January 17 and he obstructing metastatic esophageal cancer with lesion causing the obstruction of the sigmoid colon, questionable carcinomatosis. He performed exploratory laparotomy and diverting loop of the transverse colostomy. The patient already has a long-term PEG tube for alimentation. The patient last night was up on the surgical paris and over the course of the night his heart rate went up and at very close to 3 o'clock in the morning today he went into atrial fibrillation with rapid response. They gave him some digoxin and brought to the ICU for observation. Eventually in the ICU he has converted back to sinus rhythm. LABORATORY DATA: His laboratory work today shows a hemoglobin of 9.0. It was 11.2 on admission. His platelet count is 222,000. It was 415,000 on admission. His sodium has come down to 130. It was 135 on admission. Potassium is 3.5, BUN 4, creatinine 0.2. The patient weighs 128 pounds. BMI is 19.5. His albumin is 3.12. A chest x-ray has not been done as far as I can tell. The patient is not dyspneic. He denies having any chest pain. He did feel the palpitations. They have subsided now. PAST MEDICAL HISTORY: His past medical history is positive for esophageal cancer. He presented to my office for preoperative evaluation back in 2014. We performed a heart catheterization on him that showed 2-vessel coronary artery disease with occlusion of LAD and lesions in the circumflex. I recommended coronary artery bypass surgery from cardiovascular viewpoint, however, he did have the advanced esophageal cancer with evidence of metastases to the right hip and therefore, the consulting surgeon ruled out performing any esophagectomy. The patient has previously developed atrial fibrillation in April of 2015 he was cardioverted and place on amiodarone. He was supposed to be taking amiodarone 200 mg daily. He has a history of hepatitis C. He has COPD, hypertension, diabetes mellitus. PAST SURGICAL HISTORY: Additional history includes a complete decortication of the right lung, he has had left shoulder surgery and knee surgery, eye surgery. He has a long- term feeding tube. He has had also right hip surgery to treat the metastatic lesion. MEDICATIONS: His home medications at the time of this admission included the followin. He is on Remeron. 2. Amiodarone. 3. Centrum. 4. Temazepam. 5. Hydromorphone. 6. Phenergan. ALLERGIES: To codeine and sulfa drugs. REVIEW OF SYSTEMS: Is really noncontributory beyond what I have already reported. His functional status is markedly impaired. FAMILY HISTORY: Noncontributory. SOCIAL HISTORY: Lives with a sister. He has no children. He is single, not a smoker, not a drinker. PHYSICAL EXAMINATION: Right now pulse 68, blood pressure is 130/80, temperature 98.5, respirations 18. He is awake, alert, chronically ill, somewhat malnourished, somewhat pale. HEENT: Unremarkable. Chest: Clear to auscultation and percussion. Heart sounds regular and rhythmic, no murmurs, or gallops. Abdomen is slightly tender. He does have a colostomy bag on the right side of the abdomen and a feeding tube on the left side. Abdomen is relatively scaphoid. Extremities showed decreased pulses, no evidence of edema. Neurologic examination: He moves 4 extremities, follows commands. IMPRESSION AND PLAN: 1. The patient suffered episode of paroxysmal atrial fibrillation overnight that has converted after digoxin. 2. Advanced metastatic esophageal cancer with possible abdominal carcinomatosis. He just had a diverting colostomy to treat bowel obstruction. 3. History of severe coronary artery disease. Previously recommended open heart surgery, however, because of his cancer being advanced and metastatic the decision was made to not do anything else to the heart. RECOMMENDATIONS: From cardiology viewpoint you may continue amiodarone as has been stated here and you can give him digoxin either by mouth or IV. At this time, he has converted to sinus rhythm and therefore, I think he would be safe to go back to his room on the stepdown unit. He does not require intensive care services anymore. I would strongly recommend end-of-life discussion since it is obvious that the patient is in the terminal phase of his illness. Please call me if you have any questions pertaining to this case. cc: MD YOLI Nash
[2017-01-20] MEDS: RESTORIL PO SCH (21:18)
[2017-01-20] MEDS: REMERON PO SCH (21:18)
[2017-01-21] MEDS: PHENERGAN IV PRN ×3 (02:01→17:22)
[2017-01-21] MEDS: SODIUM CHLORIDE 0.9% INJ PRN ×2 (02:01→17:22)
[2017-01-21] MEDS: PERCOCET-5 FT PRN ×2 (02:01→08:03)
[2017-01-21] MEDS: DILAUDID PCA VIAL IV PRN ×5 (03:43→20:21)
[2017-01-21] MEDS: ROBAXIN 1,000 MG in NS 50 ML IV PRN (04:34)
[2017-01-21] MEDS: HEPARIN SUBQ SCH ×3 (04:36→23:19)
--- NOTE | 2017-01-21 06:31 | PROGRESS NOTE ---
DATE: 01/21/2017 SUBJECTIVE: Patient doing well. No major issues. He is off his Cardizem drip. Ostomy is working. Tolerating his feeds. OBJECTIVE: Vital Signs: Patient is currently afebrile. His vital signs have been stable. Abdomen: Dressing in place. Incision healing well. Colostomy in the right upper quadrant is functioning. ASSESSMENT/PLAN: A 51-year-old, male who has metastatic esophageal cancer, now with diverting loop colostomy from obstructing metastatic disease. Diverting loop colostomy. At this time, patient doing well. We will likely remove his bar from his colostomy on Wednesday. cc: Vincenzo Henao MD
[2017-01-21 06:35] LABS: AGAP 10; ALBUMIN 2.7 g/dL (3.5-5.0); BUN 5 mg/dL (8-22); CALCIUM 7.7 mg/dL (8.8-10.2); CHLORIDE 95 mmol/L (98-107); COSMO 264; SODIUM 131 mmol/L (136-145); TCO2 26 mmol/L (25-35)
[2017-01-21] MEDS ORDERED: SODIUM PHOSPHATE IV ONE (06:49)
[2017-01-21] MEDS ORDERED: NS IV ONE (06:49)
[2017-01-21] MEDS: LANOXIN IV SCH (08:31)
[2017-01-21] MEDS: PROTONIX IV SCH ×2 (08:32→23:19)
[2017-01-21] MEDS: CORDARONE PO SCH (08:32)
[2017-01-21] MEDS: BACTROBAN OINTMENT TOP SCH ×2 (08:33→23:18)
[2017-01-21] MEDS: SODIUM CHLORIDE 0.9% INJ SCH ×2 (08:33→23:19)
[2017-01-21] MEDS: PERCOCET-10 PO PRN ×3 (11:57→20:13)
--- NOTE | 2017-01-21 13:04 | PROGRESS NOTE ---
DATE: 01/21/2017 SUBJECTIVE: The patient is resting comfortably in bed. He has no complaints. OBJECTIVE: Vital Signs: Temperature 97.3 degrees, blood pressure 112/64, heart rate 68, respirations 17, O2 saturation is 95% on room air. General: This is an elderly male, lying in bed, in no acute distress. Head: Normocephalic, atraumatic. Heart: S1, S2. Normal. Regular rate and rhythm. Lungs: Clear to auscultation bilaterally. No wheezes. No rales. No rhonchi. Abdomen: Positive bowel sounds. Soft, nontender, nondistended. Extremities: No edema. No cyanosis. No calf tenderness. LABS: Sodium 131, potassium 4, chloride 95, CO2 26, BUN 5, creatinine 0.3, glucose 175, phosphorus 2.1. ASSESSMENT AND PLAN: 1. Paroxysmal atrial fibrillation. The patient is currently rate controlled. Continue on the current cardiac medications. 2. Metastatic esophageal cancer. Aware. 3. Status post exploratory laparotomy with a diverting loop transverse colostomy secondary to distention of the sigmoid colon. Management as per the general surgeon. 4. Hypophosphatemia. Will replace the patient's phosphorus. 5. Chronic pain secondary to metastatic esophageal cancer. Continue on the Dilaudid GREY STOCK RECORDER pump plus Percocet p.r.n. 6. Deep vein thrombosis prophylaxis. Continue on heparin 5000 units subcutaneous every 8 hours. 7. The patient is stable for transfer to the medical floor. 8. Disposition. The patient states that he plans to return home with palliative care service upon discharge. cc: Marianne Hudson MD
[2017-01-21] MEDS: ZOFRAN IV PRN (13:06)
[2017-01-21] MEDS ORDERED: NS 1,000 ML ONE (16:12)
[2017-01-21] MEDS: REMERON PO SCH (23:17)
[2017-01-21] MEDS: RESTORIL PO SCH (23:18)
[2017-01-22] MEDS: DILAUDID PCA VIAL IV PRN ×6 (00:22→21:33)
[2017-01-22] MEDS: PERCOCET-10 PO PRN ×6 (00:25→20:24)
[2017-01-22] MEDS: HEPARIN SUBQ SCH ×3 (04:37→20:24)
[2017-01-22] MEDS: PHENERGAN IV PRN (05:22)
[2017-01-22] MEDS: BLISTEX MEDICATED BERRY LIP BALM TOP PRN (06:17)
[2017-01-22] MEDS: VISINE OPH DROPS OPH PRN (06:41)
--- NOTE | 2017-01-22 07:47 | PROGRESS NOTE ---
DATE: 01/22/2017 SUBJECTIVE: The patient was transferred from the ICU to the floor. No major issues. OBJECTIVE: Vital Signs: Patient is currently afebrile. His vital signs were stable. General: No acute distress. Abdomen: Dressing in place. Incision is healing well. Ostomy is functioning. Removed T-bar from ostomy. ASSESSMENT AND PLAN: A 51-year-old male who is with metastatic esophageal cancer now with a running loop colostomy for obstructing metastatic disease. Diverting colostomy. At this time, patient's T-bar has been removed. From a surgical point of view, he can be discharged once okay with his other teams. cc: Vincenzo Henao MD
[2017-01-22 08:29] LABS: MANUAL DIFF NEEDED? NO
[2017-01-22 08:39] LABS: BASO% 0.2 % (0.0-0.8); EOS# 0.48 X1000 (0.0-0.7); EOS% 8.5 % (0.0-10.0); HEMATOCRIT 27.7 % (42.0-52.0); HEMOGLOBIN 8.8 g/dL (14.0-18.0); IMM GRAN# 0.02 X1000 (0.0-0.04); IMM GRAN% 0.4 % (0.0-0.5); LYMPH# 0.35 X1000 (1.2-3.4); LYMPH% 6.2 % (20.5-51.1); MCH 27.8 PG (27-31); MCHC 31.8 g/dL (33-37); MCV 87.4 FL (81-99); MONO# 0.47 X1000 (0.11-0.59); MONO% 8.4 % (1.7-9.3); MPV 8.9 FL (7.4-10.4); NEUT% 76.3 % (42.2-75.2); PLT 206 X1000 (130-400); RBC 3.17 XMIL (4.7-6.1)
[2017-01-22 08:45] LABS: AGAP 3; ALBUMIN 2.8 g/dL (3.5-5.0); BUN 4 mg/dL (8-22); CALCIUM 8.1 mg/dL (8.8-10.2); CHLORIDE 93 mmol/L (98-107); COSMO 263; POTASSIUM 3.6 mmol/L (3.5-5.1); SODIUM 132 mmol/L (136-145); TCO2 36 mmol/L (25-35)
[2017-01-22] MEDS: CORDARONE PO SCH (08:48)
[2017-01-22] MEDS: LANOXIN IV SCH (08:50)
[2017-01-22] MEDS: PROTONIX IV SCH ×2 (08:50→20:24)
[2017-01-22] MEDS: SODIUM CHLORIDE 0.9% INJ SCH ×2 (08:50→20:24)
[2017-01-22] MEDS: ZOFRAN IV PRN (09:56)
[2017-01-22] MEDS ORDERED: SODIUM PHOSPHATE 40 MMOL in NS 250 ML IV ONE (10:00)
[2017-01-22] MEDS: FLEXERIL PO PRN ×2 (11:14→20:25)
--- NOTE | 2017-01-22 13:03 | PROGRESS NOTE ---
DATE: 01/22/2017 SUBJECTIVE: The patient is resting comfortably in bed. He has no complaints at this time. OBJECTIVE: Vital Signs: Temperature 98.2 degrees, blood pressure 130/65, heart rate 65, respirations 19, O2 saturations 100% on room air. General: This is a chronically ill-appearing male, lying in bed, in no acute distress. Head: Normocephalic, atraumatic. Heart: S1, S2. Normal. Regular rate and rhythm. Lungs: Clear to auscultation bilaterally. Abdomen: Positive bowel sounds. Soft, nontender, nondistended. Extremities: No edema. No cyanosis. LABS: White blood cell count 5.6, hemoglobin 8.8, hematocrit 27, platelets 206,000, sodium 132, potassium 3.6, chloride 93, CO2 36, BUN 4, creatinine 0.2, glucose 124, phosphorus 2.2, albumin 2.8. ASSESSMENT AND PLAN: 1. Paroxysmal atrial fibrillation. The patient appears to be rate controlled. Continue on the current cardiac medications. 2. Esophageal cancer. Aware. 3. Status post exploratory laparotomy with diverting loop transverse colostomy secondary to obstruction of the sigmoid colon. Stable. The patient has been cleared from a surgical standpoint for discharge. 4. Chronic pain secondary to metastatic esophageal cancer. Continue on the Dilaudid DIGITAL PRODUCTION ARTIST pump plus the p.r.n. Percocet. 5. Deep vein thrombosis prophylaxis. Continue on heparin 5000 units subcutaneous every 8 hours. 6. Continue with physical therapy. 7. Disposition. The patient will be discharged home with hospice care service upon discharge. cc: Marianne Hudson MD
[2017-01-22] MEDS: RESTORIL PO SCH (20:25)
[2017-01-22] MEDS: REMERON PO SCH (20:25)
[2017-01-23] MEDS: PERCOCET-10 PO PRN ×6 (00:16→23:57)
[2017-01-23] MEDS: DILAUDID PCA VIAL IV PRN ×6 (01:54→22:58)
[2017-01-23] MEDS: PHENERGAN PO PRN ×2 (04:28→11:14)
[2017-01-23] MEDS: FLEXERIL PO PRN ×3 (07:16→23:57)
[2017-01-23] MEDS: NS 1,000 ML ONE ×2 (07:56→08:03)
[2017-01-23 08:26] LABS: MANUAL DIFF NEEDED? NO
[2017-01-23 08:29] LABS: BASO% 0.2 % (0.0-0.8); EOS# 0.41 X1000 (0.0-0.7); EOS% 7.9 % (0.0-10.0); HEMATOCRIT 27.3 % (42.0-52.0); HEMOGLOBIN 8.7 g/dL (14.0-18.0); LYMPH# 0.37 X1000 (1.2-3.4); LYMPH% 7.2 % (20.5-51.1); MCH 27.5 PG (27-31); MCHC 31.9 g/dL (33-37); MCV 86.4 FL (81-99); MONO# 0.55 X1000 (0.11-0.59); MONO% 10.7 % (1.7-9.3); MPV 9.2 FL (7.4-10.4); PLT 195 X1000 (130-400); RBC 3.16 XMIL (4.7-6.1)
[2017-01-23 08:43] LABS: AGAP 9; ALBUMIN 2.7 g/dL (3.5-5.0); BUN 5 mg/dL (8-22); CALCIUM 8.3 mg/dL (8.8-10.2); CHLORIDE 92 mmol/L (98-107); COSMO 260; SODIUM 130 mmol/L (136-145); TCO2 29 mmol/L (25-35)
--- NOTE | 2017-01-23 08:51 | PROGRESS NOTE ---
DATE: 01/23/2017 SUBJECTIVE: Feels well. Ostomy is working. No real pain above his baseline. OBJECTIVE: Vital signs: No fevers. Temp 97.8, pulse 67, blood pressure 119/63. General: He is alert. Incision is clean, dry, and intact. Abdomen: There is some old drainage on his incision, but I do not see any active drainage, no cellulitis. Ostomy is pink, viable, stool in the bag. G- tube site is in place. LABS: I reviewed his labs. White count is normal. Hematocrit is stable at 27. ASSESSMENT AND PLAN: A 51-year-old male status post loop colostomy for obstructing colon mass related to metastatic esophageal cancer. Osteotomy is functioning. He is tolerating enteral nutrition. He needs education with the stomal nurse and plans for this on Wednesday. Will continue to follow along. cc: Crispin Harry MD
[2017-01-23] MEDS: SODIUM CHLORIDE 0.9% INJ SCH ×2 (10:00→22:22)
[2017-01-23] MEDS: PROTONIX IV SCH ×2 (10:00→22:22)
[2017-01-23] MEDS: LANOXIN IV SCH (11:15)
[2017-01-23] MEDS: HEPARIN SUBQ SCH ×3 (13:07→22:24)
[2017-01-23] MEDS: BACTROBAN OINTMENT TOP SCH ×2 (13:09→22:23)
[2017-01-23] MEDS ORDERED: SODIUM PHOSPHATE 40 MMOL in NS 250 ML IV ONE (13:56)
--- NOTE | 2017-01-23 14:20 | PROGRESS NOTE ---
DATE: 01/23/2017 SUBJECTIVE: The patient is resting comfortably in bed. He has no complaints. OBJECTIVE: Vital Signs: Temperature 97.8 degrees, blood pressure 119/63, heart rate 67, respirations 18, O2 saturations 95% on room air. General: This is a chronically ill-appearing, elderly male, lying in bed, in no acute distress. Head: Normocephalic atraumatic. Heart: S1, S2. Normal. Regular rate and rhythm. Lungs: Clear to auscultation bilaterally. Abdomen: Positive bowel sounds. Soft, nontender, nondistended. Extremities: No edema. No cyanosis. Neurologic: The patient is alert and oriented x3. LABS: Phosphorus 2.4. White blood cell count 5.1, hemoglobin 8.7, hematocrit 27, platelets 195,000. Sodium 130, potassium 4, chloride 97, CO2 29. ASSESSMENT AND PLAN: 1. Paroxysmal atrial fibrillation. The patient is in normal sinus rhythm. Continue on the current cardiac medications. 2. Esophageal cancer. Aware. 3. Status post exploratory laparotomy with diverting loop transverse colostomy secondary to obstruction of the colon. Stable. The patient will undergo ostomy teaching on Wednesday. 4. Chronic pain secondary to metastatic esophageal cancer. Continue on the Dilaudid WING COMMANDER pump and p.r.n. Percocet. 5. Deep vein thrombosis prophylaxis. Continue on heparin 5000 units subcutaneous every 8 hours. 6. Continue with physical therapy. 7. Disposition. After the patient receives ostomy teaching on Wednesday he should be stable for discharge. cc: Marianne Hudson MD
[2017-01-23] MEDS: ZOFRAN IV PRN (18:13)
[2017-01-23] MEDS: REMERON PO SCH (22:23)
[2017-01-23] MEDS: RESTORIL PO SCH (22:23)
[2017-01-24] MEDS: DILAUDID PCA VIAL IV PRN ×5 (04:02→20:37)
[2017-01-24] MEDS: PERCOCET-10 PO PRN ×4 (04:20→18:14)
[2017-01-24] MEDS: HEPARIN SUBQ SCH ×4 (05:29→21:39)
[2017-01-24 07:31] LABS: AGAP 9; ALBUMIN 2.9 g/dL (3.5-5.0); BUN 4 mg/dL (8-22); CALCIUM 8.5 mg/dL (8.8-10.2); CHLORIDE 91 mmol/L (98-107); COSMO 257; POTASSIUM 3.8 mmol/L (3.5-5.1); SODIUM 129 mmol/L (136-145); TCO2 29 mmol/L (25-35)
[2017-01-24 07:33] LABS: BASO% 0.3 % (0.0-0.8); EOS# 0.61 X1000 (0.0-0.7); EOS% 9.5 % (0.0-10.0); HEMATOCRIT 29.2 % (42.0-52.0); HEMOGLOBIN 9.4 g/dL (14.0-18.0); IMM GRAN# 0.02 X1000 (0.0-0.04); IMM GRAN% 0.3 % (0.0-0.5); LYMPH# 0.64 X1000 (1.2-3.4); LYMPH% 9.9 % (20.5-51.1); MANUAL DIFF NEEDED? YES; MCH 27.7 PG (27-31); MCHC 32.2 g/dL (33-37); MCV 86.1 FL (81-99); MONO# 0.83 X1000 (0.11-0.59); MONO% 12.9 % (1.7-9.3); MPV 9.7 FL (7.4-10.4); NEUT% 67.1 % (42.2-75.2); PLT 219 X1000 (130-400); RBC 3.39 XMIL (4.7-6.1)
[2017-01-24 09:19] LABS: BANDS 2 % (0-1); EOS 12 % (1-10); LYMPHS 10 % (21-51); MONO 12 % (1-9)
[2017-01-24] MEDS: PROTONIX IV SCH ×2 (09:25→21:38)
[2017-01-24] MEDS: SODIUM CHLORIDE 0.9% INJ PRN ×2 (09:25→09:35)
[2017-01-24] MEDS: LANOXIN IV SCH (09:26)
[2017-01-24] MEDS: PHENERGAN IV PRN ×2 (09:35→21:39)
[2017-01-24] MEDS: BACTROBAN OINTMENT TOP SCH ×2 (09:38→21:49)
[2017-01-24] MEDS: NS 1,000 ML IV SCH (13:23)
[2017-01-24] MEDS ORDERED: NS IV ONE ×2 (13:53→14:15)
[2017-01-24] MEDS ORDERED: SODIUM PHOSPHATE IV ONE ×2 (13:53→14:15)
--- NOTE | 2017-01-24 14:33 | PROGRESS NOTE ---
DATE: 01/24/2017 SUBJECTIVE: Feels well. Ostomy is functioning. He is tolerating a diet. Pain is controlled. OBJECTIVE: No fevers. No tachycardia.Abdomen: Soft. Appropriately tender. Incision is clean, dry, and intact. Ostomy pink, viable with stool in the bag. LABS: Reviewed. ASSESSMENT AND PLAN: This is a 51-year-old male with metastatic esophageal cancer status post diverting colostomy. He is doing well overall surgically. His ostomy nurse will see him tomorrow. I think he will be ready for discharge shortly thereafter. cc: Crispin Harry MD
--- NOTE | 2017-01-24 16:15 | PROGRESS NOTE ---
DATE: 01/24/2017 SUBJECTIVE: The patient is resting comfortably in bed. He does complain of some pain in his feet but otherwise has no other complaints. OBJECTIVE: Vital Signs: Temperature 97.8 degrees, blood pressure 115/61, heart rate 65, respirations 18, O2 saturation is 99% on room air. General: This is an elderly male, lying in bed, in no acute distress. Head: Normocephalic, atraumatic. Heart: S1, S2. Normal. Regular rate and rhythm. Lungs: Clear to auscultation bilaterally. No wheezes. No rales. No rhonchi. Abdomen: Positive bowel sounds. Soft, nontender, nondistended. Extremities: No edema. No cyanosis. Neurologic: The patient is alert and oriented x3. LABS: White blood cell count 6.4, hemoglobin 9.4, hematocrit 29, platelets 219,000. Sodium 129, potassium 3.8, chloride 91, CO2 29, BUN 4, creatinine 0.3, glucose 115, phosphorus 2.6. ASSESSMENT AND PLAN: 1. Paroxysmal atrial fibrillation. The patient is in normal sinus rhythm. Continue on amiodarone. 2. Hypophosphatemia. Will replace the patient's phosphorus. 3. Hyponatremia. Will start the patient on gentle IV fluid hydration and repeat the sodium in the morning. 4. Status post exploratory laparotomy with diverting loop transverse colostomy secondary to obstruction of the colon. Stable. The patient will undergo ostomy teaching on Wednesday. 5. Chronic pain secondary to metastatic esophageal cancer. Continue on the Dilaudid INFORMATICS ANALYST pump and p.r.n. Percocet. 6. Deep vein thrombosis prophylaxis. Continue on heparin 5000 units subcutaneous every 8 hours. 7. Continue with physical therapy. 8. Disposition. The patient is under the care of [facility]. His INFORMATICS ANALYST pump that he uses at home is managed by Dr. Guevara and [facility]. The patient states that he wants to go home and is not interested in going to rehab. cc: Marianne Hudson MD
[2017-01-24] MEDS: REMERON PO SCH (21:38)
[2017-01-24] MEDS: RESTORIL PO SCH (21:48)
[2017-01-25] MEDS: DILAUDID PCA VIAL IV PRN ×4 (01:06→12:12)
[2017-01-25] MEDS: PERCOCET-10 PO PRN ×4 (03:33→15:36)
[2017-01-25] MEDS: FLEXERIL PO PRN ×2 (04:16→14:02)
[2017-01-25] MEDS: PHENERGAN PO PRN (04:17)
[2017-01-25] MEDS ORDERED: LOPRESSOR PO ONE (05:12)
[2017-01-25] MEDS: HEPARIN SUBQ SCH ×3 (05:27→13:50)
[2017-01-25 06:38] LABS: MANUAL DIFF NEEDED? NO
--- NOTE | 2017-01-25 06:45 | PROGRESS NOTE ---
DATE: 01/25/2017 SUBJECTIVE: Patient doing well. No major issues. OBJECTIVE: Vital Signs: Patient is currently afebrile. His vital signs are stable. General: No acute distress. Alert, interactive. Cardiovascular: Regular rate and rhythm. Lungs: Grossly clear. Abdomen: Soft, appropriately tender. Ostomy functioning. An ostomy is viable. ASSESSMENT AND PLAN: A 51-year-old male with metastatic esophageal cancer now with a diverting loop colostomy for obstructing metastatic disease. Diverting loop colostomy. At this time, patient's T-bar has been removed. His ostomy is functioning from a surgical point of view. He can be discharged once he feels comfortable with his care of his ostomy. cc: Vincenzo Henao MD
[2017-01-25 06:57] LABS: BASO% 0.3 % (0.0-0.8); EOS# 0.47 X1000 (0.0-0.7); EOS% 7.9 % (0.0-10.0); HEMATOCRIT 27.8 % (42.0-52.0); HEMOGLOBIN 8.9 g/dL (14.0-18.0); LYMPH# 0.55 X1000 (1.2-3.4); LYMPH% 9.2 % (20.5-51.1); MCH 27.8 PG (27-31); MCV 86.9 FL (81-99); MONO# 0.88 X1000 (0.11-0.59); MONO% 14.8 % (1.7-9.3); MPV 9.7 FL (7.4-10.4); NEUT% 67.8 % (42.2-75.2); PLT 230 X1000 (130-400)
[2017-01-25 07:19] LABS: AGAP 11; BUN 4 mg/dL (8-22); CALCIUM 8.4 mg/dL (8.8-10.2); CHLORIDE 94 mmol/L (98-107); COSMO 263; POTASSIUM 3.9 mmol/L (3.5-5.1); SODIUM 133 mmol/L (136-145); TCO2 28 mmol/L (25-35)
[2017-01-25] MEDS: PROTONIX IV SCH (10:23)
[2017-01-25] MEDS: LANOXIN IV SCH (10:23)
[2017-01-25] MEDS: BACTROBAN OINTMENT TOP SCH (10:24)
[2017-01-25] MEDS: PHENERGAN IV PRN (10:24)
[2017-01-25] MEDS: CORDARONE PO SCH (10:24)
[2017-01-25 13:19] VITALS: BP 113/68
[2017-01-25] MEDS: NS 1,000 ML IV SCH (13:50)
--- NOTE | 2017-01-26 07:26 | DISCHARGE SUMMARY ---
ADMISSION DATE: 01/17/2017 DISCHARGE DATE: 01/25/2017 CONSULTATIONS: 1. Dr. Vincenzo Henao with General Surgery. 2. Dr. Flex Billy with Cardiology. PERTINENT PROCEDURES: 1. Exploratory laparotomy diverting loop transverse colostomy. 2. Echocardiogram showed no significant valvular abnormality. Normal left LV function. Small area of severe hypokinesis in the more apical portion of the apical septum. DISCHARGE DIAGNOSES: 1. Paroxysmal atrial fibrillation. Patient now in sinus rhythm. Continue amiodarone. 2. Status post exploratory laparotomy with diverting loop transverse colostomy secondary to obstruction of the colon. The patient underwent ostomy teaching today with the wound care nurse as well as being provided with a DVD and supplies. 3. Chronic pain secondary to metastatic esophageal cancer. Continue with Dilaudid ZIG ZAG STITCHER pump and p.r.n. Percocet. He is followed by [facility]. His ZIG ZAG STITCHER pump at home is managed by Dr. Guevara, as well as [facility]. HOSPITAL COURSE: Briefly, Mr. Ashley is a 51-year-old, male, with metastatic esophageal cancer that involves the right hip and bone followed by Dr. Guevara [facility] with ZIG ZAG STITCHER pump. He has also been receiving right hip radiation treatments from Dr. June. The patient presented to the ED with primarily right lower quadrant abdominal cramping that radiates to his left side. He stated that for 4 days his tube feed, when he did it, were coming back out. He had no bowel movement in 4 days. He has had nausea. CT of the abdomen and pelvis showed a sigmoid obstruction, likely malignancy, and multiple esophageal mets. The patient was aware of this. He was held n.p.o. His PEG tube was kept to low intermittent suction. He was given an enema to help with his constipation. Dr. Henao saw the patient and performed exploratory lap diverting loop transverse colostomy. Per General Surgery, the patient was kept here through the week so they could remove the bar from his loop colostomy to give him adequate time to keep the physician as well as enterostomal therapy to teach him ostomy care. The patient did have an episode of atrial fibrillation with RVR where Cardiology was consulted. He was converted to sinus rhythm after digoxin and, from their standpoint, we were to continue on with his home amiodarone. The patient was continued on his Jevity feedings. He was tolerating those well with no residuals. He was having good output through his ostomy. Surgery has cleared the patient for discharge back home. He has received his ostomy education as well as supplies. The patient is being discharged back home with his home health, his palliative care, as well as his ZIG ZAG STITCHER for his pain management. Vital signs at time of his discharge: Temperature 97.4 degrees, heart rate 63, respirations 16, blood pressure 103/53, O2 is 98% on room air. DISCHARGE DIET: Clear liquids as well as his Jevity tube feedings as setup by dietary and will be continued to follow with [facility]. DISCHARGE MEDICATION: As per Dr. Young. 1. Amiodarone 200 mg p.o. as directed. 2. Digoxin 125 mcg p.o. daily. 3. Dilaudid ZIG ZAG STITCHER as directed. 4. Remeron 30 mg p.o. at bedtime. 5. Zofran 1 tablet p.o. p.r.n. 6. Phenergan 1 tablet p.o. p.r.n. 7. Restoril 15 mg p.o. at bedtime. FOLLOWUP: The patient is being discharged home with [facility] as well as [facility] for infusions. He will need to follow up with his primary care physician, Dr. Devika Colon, in 1 week; with Dr. Henao as instructed, as well as Dr. Guevara as instructed. The patient has been taught and given DVD as well as supplies for his ostomy care. The patient can return to the ED for any worsening of symptoms. Discharge time greater than 30 minutes. Dictated by GORDON Parker for Rodney Young MD cc: Rodney Young MD
== END 2017-01-25 16:16 | disposition home health service (06) ==
LOC: ED 03:20 → 3N 11:22 → SUATTDRO 11:22 → ICU 01-20 04:17 → 3N 01-21 15:18
PROVIDERS: ATTEND Internal Medicine
PROC: GE.COLS (2017-01-17 14:21)

== ENCOUNTER 2017-03-27 21:27 | Inpatient (IN) ==
[2017-03-27] MEDS ORDERED: DUONEB (A & A) INH ONE (21:48)
--- NOTE | 2017-03-27 22:16 | Diag Imaging Result Doc PS360 ---
EXAM: CHEST-1 VIEW HISTORY: cough TECHNIQUE: Portable upright AP COMPARISON: 01/20/2017 FINDINGS: No change in the right jugular line. No pneumothorax. There are old right rib fractures with pleural thickening. Heart is not enlarged. The vessels are not distended. No consolidation. IMPRESSION: No pneumonia. Electronically signed by Derrick Price 03/27/2017 10:14 PM
[2017-03-27 22:26] LABS: BASO% 0.1 % (0.0-0.8); HEMATOCRIT 28.7 % (42.0-52.0); HEMOGLOBIN 9.9 g/dL (14.0-18.0); IMM GRAN# 0.02 X1000 (0.0-0.04); IMM GRAN% 0.2 % (0.0-0.5); LYMPH# 0.32 X1000 (1.2-3.4); LYMPH% 2.8 % (20.5-51.1); MANUAL DIFF NEEDED? YES; MCH 29.1 PG (27-31); MCHC 34.5 g/dL (33-37); MCV 84.4 FL (81-99); MONO# 0.77 X1000 (0.11-0.59); MONO% 6.7 % (1.7-9.3); MPV 9.2 FL (7.4-10.4); NEUT% 90.2 % (42.2-75.2); PLT 209 X1000 (130-400)
[2017-03-27 22:54] LABS: LYMPHS 2 % (21-51); MONO 4 % (1-9)
[2017-03-27 23:04] LABS: AGAP 12; ALBUMIN 3.4 g/dL (3.5-5.0); ALKALINE PHOSPHATASE 142 U/L (32-122); BUN 5 mg/dL (8-22); CALCIUM 8.5 mg/dL (8.8-10.2); CHLORIDE 78 mmol/L (98-107); COSMO 238; GOT 26 U/L (10-34); GPT 19 U/L (10-44); POTASSIUM 3.8 mmol/L (3.5-5.1); SODIUM 119 mmol/L (136-145); TCO2 29 mmol/L (25-35); TOTAL PROTEIN 7.1 g/dL (6.3-8.3)
--- NOTE | 2017-03-27 23:20 | PROVIDER DOCUMENTATION ---
This chart was entered by Rancho Garcia Scribe, acting as scribe for Eleuterio Hyatt MD. HPI-General Adult - General Chief Complaint: Cough Stated Complaint: congestion ? pna Time Seen by Provider: 03/27/17 21:31 Source: patient Allergies/Adverse Reactions: Patient Allergies Allergy/AdvReac Type Severity Reaction Status Date / Time codeine Allergy Mild HIVES Verified 03/27/17 22:57 Sulfa (Sulfonamide Allergy Mild ITCHING Verified 03/27/17 22:57 Antibiotics) Home Medications: Home Medication List Medication Instructions Recorded Confirmed Last Taken Type Mirtazapine [Remeron] 30 mg PO QHS #0 tablet 09/15/16 03/27/17 03/27/17 20:00 Rx Temazepam [Restoril] 15 mg PO QHS #0 capsule 09/15/16 03/27/17 03/27/17 20:00 Rx Amiodarone [Cordarone] 200 mg PO DIRECTED 11/21/16 03/27/17 03/27/17 20:00 History Hydromorphone HCl [Dilaudid CREW LEAD 6 mg IV DIRECTED PRN PRN 01/17/17 03/27/17 22:10 History Vial] Ondansetron [Zofran Odt] 1 tab PO PRN PRN 01/17/17 03/27/17 03/27/17 20:00 History Promethazine [Phenergan] 1 tab PO PRN PRN 01/17/17 03/27/17 03/27/17 18:00 History Digoxin 125 mcg PO DAILY #30 tablet 01/25/17 03/27/17 03/27/17 21:00 Rx Oxycodone HCl/Acetaminophen 1 each PO Q6H PRN #20 tablet 01/25/17 03/27/1703/27 17:00 Rx [Percocet 7.5-325 mg Tablet] - History of Present Illness -Gen Adult Nature of Presenting Problems: Pt is a 52 yowm who presents to ER with CC of possible pnax3 days. Pt states that he thinks he has pna because he has developed N/V/productive cough/SOB/ rhinorrhea/sinus congestion/and generalized weakness. PT reports hx of esophageal cancer with a recent discovery of a tumor in right hip. On exam, pt moans continuously as well as on physical. Location of Pain/Injury: reports: generalized Pain Radiation: reports: no radiation Quality of Pain: reports: aching, cramping Severity: reports: moderate, severe Onset/Duration: reports: 3 days ago Timing: reports: still present Associated Symptoms: reports: cough, diarrhea, dizziness, fatigue, loss of appetite, muscle aches, sinus congestion/drainage, nausea, shortness of breath, vomiting, weakness, trouble walking. denies: anxiety, arm pain, back/neck pain , chest pain, constipation, diaphoresis, EENT symptoms, fever/chills, headaches , heartburn, syncope Similar Symptoms Previously?: Yes Recently seen or treated by another doctor?: Yes Review of Systems - Adult - REVIEW OF SYSTEMS - ADULT Constitutional: reports: fatique. denies: chills, fever, night sweats, weight gain, weight loss Eyes: reports: no symptoms reported Ears, Nose, Mouth & Throat: reports: sinus problem (congested/rhinorrhea). denies: ear discharge, ear pain, throat pain Cardiovascular: reports: no symptoms reported Respiratory: reports: cough, excessive sputum production, shortness of breath. denies: chronic cough, dyspnea on exertion, hemoptysis, pleurisy, wheezing Gastrointestinal: reports: diarrhea, nausea, vomiting. denies: abdominal pain, hematemesis, constipation, difficulty swallowing, frequent heartburn, poor appetite, rectal bleeding Genitourinary: reports: no symptoms reported Musculoskeletal: reports: no symptoms reported Integumentary: reports: no symptoms reported Neurological: reports: no symptoms reported Psychiatric: reports: no symptoms reported Endocrine: reports: no symptoms reported Hematologic/Lymphatic: reports: no symptoms reported Allergic/Immunologic: reports: no symptoms reported All Other Systems: Reviewed and Negative Past History - Adult - PAST MEDICAL HISTORY-ADULT Review of Records: reports: Nursing Assessment Review, Medications Reviewed Cardiovascular: reports: HTN Endocrine/Immune: reports: Diabetes Other Conditions: reports: other cancer (esophageal) - PRIOR SURGERIES/PROCEDURES Surgical/Procedure History: reports: orthopedic (extremity) - PRIOR HOSPITALIZATIONS Prior Hospitalizations: reports: for similar symptoms - IMMUNIZATION STATUS Childhood Immunizations: See Nurse Assessment Flu Vaccine: See Nurse Assessment - FAMILY HISTORY Family History: reviewed, not pertinent Physical Exam-General - PHYSICAL EXAM-ADULT Initial Vital Signs Reviewed: Yes - CONSTITUTIONAL General Appearance: appears well, alert, moderate distress, severe distress, lethargic, slow to respond, other (Pt moans continuously on history and exam) - RESPIRATORY Respiratory: chest non-tender, no pleuratic chest pain, no respiratory distress , no accessory muscle use, rales (inspiratory/expiratory-all june). negative : lungs clear, normal breath sounds - CARDIOVASCULAR Cardiovascular: normal peripheral pulses, regular rate, rhythm. negative: bradycardia, tachycardia, irregularly irregular - GASTROINTESTINAL (ABDOMEN) Abdominal Exam: normal bowel sounds, non tender, soft, no organomegaly, no pulsatile mass, tenderness (Pt indicated tenderness to right hip), other ( colostomy bag) - PSYCHIATRIC Psych/Mental Status: normal thought content, normal thought process, oriented x 3, disheveled, depressed affect. negative: normal mood/affect Progress - PLAN OF CARE/RESULTS Progress/Plan/Lab Results: Vital Signs - 8 hr 03/27/17 21:40 Temperature 97.9 F Pulse Rate 75 Respiratory Rate 19 Blood Pressure 150/86 O2 Sat by Pulse Oximetry 97 Result Diagrams: 03/27/17 21:50 03/27/17 21:54 - EKG 1 Time of EKG reading by physician:: 21:37 EKG Read and Signed by:: Eleuterio Hyatt EKG Interpretation (*Must complete 3 of following elements*): Abnormal (Septal infarct, age undetermined) - XRAY 1 XRAY: Bilateral XRAY Study: Chest Impression: See EMR Report XRAY Interpretation: No pna - Dr. Price (Radiologist) - CONSULTS/PCP/HOSPITALIST Notification #1 *Consult/PCP/Hospitalist*: Mark Time Discussed: 23:19 Consult Disposition: Will see in ED, Admit (will write all orders) Departure - Departure Date of Disposition Decision: 03/27/17 Time of Disposition Decision: 23:16 DIAGNOSIS: Hyponatremia Disposition: ADMITTED INPATIENT 09 Certified Medical Emergency: Emergent Condition: Good - Critical Care Note This patient required my direct & personal management of CC.: Yes This chart was documented by the indicated scribe, (Rancho Garcia, Arnoldo) and accurately reflects the services I performed and decisions made by me, Eleuterio Hyatt MD, as attested by the provider's signature.
[2017-03-27] MEDS ORDERED: TORADOL IV ONE (23:43)
[2017-03-28] MEDS ORDERED: CORDARONE PO SCH (00:48)
[2017-03-28] MEDS ORDERED: PATIENT'S OWN MED INJ PRN (00:48)
[2017-03-28 01:35] LABS: URINE CULTURE NEEDED? NO; URINE MICRO REVIEW NEEDED? NO; URINE SOURCE CATH
[2017-03-28 01:38] LABS: BILIRUBIN URINE NEGATIVE (NEGATIVE); BLOOD URINE NEGATIVE (NEGATIVE); COLOR YELLOW; GLUCOSE URINE NEGATIVE (NEGATIVE); LEUKOCYTES URINE NEGATIVE (NEGATIVE); NITRITE URINE NEGATIVE (NEGATIVE); PROTEIN URINE NEGATIVE (NEGATIVE); SP GRAVITY URINE 1.007; TURBIDITY URINE CLEAR (CLEAR); UROBILINOGEN URINE NORMAL (NORMAL)
[2017-03-28 01:39] LABS: UR EPITHELIAL CELLS <10 /HPF (<10); URINE BACTERIA NEGATIVE /HPF; URINE RBC <10 /HPF (<10); URINE WBC <10 /HPF (<10)
[2017-03-28] MEDS: DOXYCYCLINE 100 MG in NS 250 ML IV SCH ×2 (02:08→12:55)
[2017-03-28] MEDS: NS 1,000 ML IV SCH ×2 (02:08→14:57)
[2017-03-28] MEDS: ZOFRAN IV PRN ×4 (02:41→14:57)
[2017-03-28] MEDS: VALIUM PEG PRN ×3 (02:42→18:31)
--- NOTE | 2017-03-28 06:35 | HISTORY AND PHYSICAL ---
PRIMARY CARE PROVIDERS: Devika Colon. ONCOLOGIST: Dr. Darci Guevara. CHIEF COMPLAINT: Cough x3 days. HISTORY OF PRESENT ILLNESS: This is a 52-year-old male who appears very ill. He has metastatic esophageal cancer with metastases to his right hip bone. He was receiving outpatient radiation treatments by Dr. June. He was also seeing Dr. Guevara. He uses a Dilaudid AUTO BODY REPAIR TEACHER pump. He has an ostomy and G-tube for feedings but, as noted, is very ill appearing. States that he has had a cough for the last few days and is congested with rhinorrhea,. Chest x-ray was obtained in the emergency room and was read by radiology as no infiltrates. Laboratory data showed anemia of chronic disease, mild elevation of the white blood cell count, and a sodium of 119. The patient will be admitted to ICU for further evaluation and treatment. PAST MEDICAL HISTORY: 1. 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 2. CAD. 3. Systolic congestive heart failure with an ejection fraction of 45-50%. 4. Paroxysmal atrial fibrillation. PREVIOUS SURGICAL HISTORY: 1. Right femur repair. 2. Port-A-Cath placement. 3. Repair of G-tube. 4. PEG tube placement. 5. Ostomy placement. SOCIAL HISTORY: Smokes a pack of cigarettes a day. Denies alcohol or illicit drug use or abuse. Lives at home with 1 sister. ALLERGIES: Codeine and sulfa. HOME MEDICATIONS: 1. Restoril 15 mg p.o. at bedtime. 2. Mirtazapine 30 mg p.o. at bedtime. 3. Amiodarone 200 mg p.o. as directed. 4. Zofran ODT 1 p.o. p.r.n. 5. Phenergan 1 tablet p.o. p.r.n. 6. Dilaudid AUTO BODY REPAIR TEACHER 6 mg IV as directed. 7. Digoxin 125 mcg p.o. daily. 8. Percocet 7.5 one p.o. q.6 p.r.n. breakthrough pain. REVIEW OF SYSTEMS: Fourteen point review of systems conducted with the patient. He has complaint of severe right leg pain. Other pertinent positives listed above in the HPI. All other systems were reviewed and found to be negative. PHYSICAL EXAMINATION: VITAL SIGNS: Temperature 98.2 degrees, pulse 81, respirations 22, blood pressure 142/88, oxygen saturation 95% on 2 L nasal cannula. GENERAL: A very ill-appearing, 52-year-old male lying on the ER stretcher. Answers all questions appropriately. He is in pain but in no acute distress. HEENT: Head is atraumatic, normocephalic. Pupils equal, round, reactive to light. Extraocular eye movement intact. Sclerae are anicteric. Conjunctivae are pale. Oral mucosa is dry. NECK: Supple. No JVD. Trachea is midline. CARDIOVASCULAR: S1-S2 appreciated. Regular rhythm. No murmurs, gallops, rubs. LUNGS: Bibasilar crepitations noted. Decreased bilateral bases. No rhonchi. No rales. Symmetrical rise and fall with respirations. ABDOMEN: Soft, nondistended, nontender. Bowel sounds present in all 4 quadrants. Ostomy and a G- tube noted. EXTREMITIES: No clubbing, cyanosis, or edema. NEUROLOGICAL: Alert and oriented x3. Cranial nerves 2-12 appear to be grossly intact. SKIN: Cool and dry. Patient noted to be very pale. DIAGNOSTIC DATA: Chest x-ray shows no infiltrate. LABORATORY DATA: WBC 11.41, hemoglobin 9.9, hematocrit 28.7, platelet count 209,000. Sodium 119, potassium 3.8, chloride 78, carbon dioxide 29, BUN 5, creatinine 0.2, glucose 112. Urine unremarkable. Urine osmolality and sodium studies are pending. ASSESSMENT AND PLAN: 1. Hyponatremia. We will start patient on normal saline as he appears to be fluid volume depleted. We will monitor sodium level every 6 hours. 2. Stage IV cancer with metastasis to the right hip bone. We will give Toradol 15 mg intravenous now. Continue Dilaudid AUTO BODY REPAIR TEACHER. Consult Dr. Page Baltazar as patient requested not to see his primary oncologist. 3. Tobacco abuse. Smoking cessation was gone over with the patient. He does not want to quit at this time. 4. Anemia of chronic disease. The patient is at baseline. Aware. 5. Chronic pain syndrome. As noted above, we will continue Dilaudid AUTO BODY REPAIR TEACHER. 6. Further recommendations per patient's clinical course. Dictated by GORDON Pereira for Juan Flores MD cc: GORDON Pereira MD Lindsay Smith
[2017-03-28 06:49] LABS: AGAP 10; BUN 3 mg/dL (8-22); CALCIUM 7.6 mg/dL (8.8-10.2); CHLORIDE 87 mmol/L (98-107); COSMO 249; POTASSIUM 3.2 mmol/L (3.5-5.1); SODIUM 126 mmol/L (136-145); TCO2 29 mmol/L (25-35)
[2017-03-28] MEDS: PERCOCET-5 PO PRN ×3 (07:16→19:53)
[2017-03-28] MEDS: PHENERGAN PO PRN ×3 (07:17→19:53)
[2017-03-28] MEDS: LANOXIN PO SCH (08:08)
[2017-03-28] MEDS: MILK OF MAGNESIA PO SCH (08:08)
[2017-03-28] MEDS ORDERED: DILAUDID ONE (08:20)
[2017-03-28] MEDS ORDERED: DILAUDID IV ONE (08:24)
[2017-03-28] MEDS ORDERED: POTASSIUM CHLORIDE 40 MEQ/SWI 40 MEQ/100 ML IVPB IV ONE (08:30)
--- NOTE | 2017-03-28 09:08 | PROGRESS NOTE ---
DATE: 03/28/2017 SUBJECTIVE: This patient is complaining of generalized pain but mostly at the level of the shoulders and back and right hip. His brother is at the bedside and I answered all their questions. He is completely alert and oriented x3. No focal deficits. OBJECTIVE: Vital Signs: Temperature 98.3 degrees, pulse 75, respiratory rate 25, blood pressure 137/73, oxygen saturation 93 on room air. General: Chronically ill. Patient is very cachectic. HEENT: Head normocephalic. No trauma. PERRLA. Neck: Supple. No JVD. No masses. Central trachea. Chest: Clear to auscultation. No wheezing. No rales. Abdomen: He has a colostomy bag that is working fine. He has a PEG that does not look infected. Mildly painful to palpation, generalized. Extremities: No edema. No clubbing. No cyanosis. Severely decreased muscle mass. Neurological Examination: The patient is alert and oriented x3. No focal deficits. Laboratory: Sodium 126, potassium 3.2, chloride 87, bicarbonate 29, BUN 3, creatinine 0.2, glucose 78, calcium 7.6. ASSESSMENT AND PLAN: 1. Metastatic esophageal cancer. At this point, we will continue with Dilaudid URBAN ANTHROPOLOGIST pump and I will put this patient on Percocet as needed. At home, he has been apparently with [employer]. His URBAN ANTHROPOLOGIST pump at home is managed by Dr. Guevara but at this moment, it is no working so we are trying to call the company to fix this. He cannot push the as needed medication. 2. Hyponatremia. Initially, this patient was admitted with a sodium of 119. He received intravenous fluids and now the sodium is around 126. I checked back on his sodium from this year and the lowest has been 129 and the highest has been 133 so this patient has been chronically hyponatremic. I will continue with intravenous fluids for now. 3. Chronic pain syndrome. As above, continue with pain medication. 4. Tobacco abuse. Smoking cessation has been discussed but he does not want to quit at this time. 5. Anemia of chronic disease. This is his baseline. We will continue to monitor. 6. Hypokalemia. I will replace the potassium. 7. Nutritional status. This patient is very cachectic. Severe malnutrition. He is on Jevity at home through the PEG tube. I will restart this treatment. 8. Called status. I had a large conversation with him and his brother, and he wants to remain a full code. I explained to him every everything about [id number] and full code. I will consult the palliative care team as well. CRITICAL CARE TIME: 40 minutes. Time spent talking to the family and with the patient about the DNR status, about 35 minutes. cc: Ganesh Overton MD
[2017-03-28] MEDS ORDERED: MUCINEX PO ONE (13:32)
[2017-03-28] MEDS ORDERED: NICODERM PATCH TD ONE ×2 (13:33→13:46)
[2017-03-28 13:44] LABS: AGAP 11; BUN 4 mg/dL (8-22); CALCIUM 8.7 mg/dL (8.8-10.2); CHLORIDE 85 mmol/L (98-107); COSMO 247; POTASSIUM 4.7 mmol/L (3.5-5.1); SODIUM 125 mmol/L (136-145); TCO2 29 mmol/L (25-35)
[2017-03-28 19:06] LABS: AGAP 11; BUN 5 mg/dL (8-22); CALCIUM 8.4 mg/dL (8.8-10.2); CHLORIDE 87 mmol/L (98-107); COSMO 251; POTASSIUM 4.2 mmol/L (3.5-5.1); SODIUM 127 mmol/L (136-145); TCO2 29 mmol/L (25-35)
[2017-03-28] MEDS: REMERON PO SCH (20:00)
[2017-03-28] MEDS: RESTORIL PO SCH (20:00)
[2017-03-28] MEDS: MUCINEX PO SCH (20:00)
[2017-03-29] MEDS: DOXYCYCLINE 100 MG in NS 250 ML IV SCH ×2 (01:19→14:30)
[2017-03-29] MEDS: PERCOCET-5 PO PRN ×3 (03:23→15:39)
[2017-03-29] MEDS: VALIUM PEG PRN ×3 (03:25→22:05)
[2017-03-29] MEDS: PHENERGAN PO PRN ×2 (03:25→09:21)
[2017-03-29] MEDS: NS 1,000 ML IV SCH (03:51)
[2017-03-29 07:14] LABS: BASO% 0.1 % (0.0-0.8); HEMATOCRIT 27.6 % (42.0-52.0); HEMOGLOBIN 9.1 g/dL (14.0-18.0); LYMPH# 0.18 X1000 (1.2-3.4); LYMPH% 2.4 % (20.5-51.1); MANUAL DIFF NEEDED? YES; MCH 28.9 PG (27-31); MCV 87.6 FL (81-99); MONO% 6.5 % (1.7-9.3); MPV 9.4 FL (7.4-10.4); PLT 224 X1000 (130-400); RBC 3.15 XMIL (4.7-6.1)
--- NOTE | 2017-03-29 07:31 | EKG Report ---
Test Performed on : 03/27/2017 9:33:45 PM Test Reason : No order in [facility] Blood Pressure : / mmHG Vent. Rate : 072 BPM Atrial Rate : 072 BPM P-R Int : 152 ms QRS Dur : 058 ms QT Int : 404 ms P-R-T Axes : 118 051 035 degrees QTc Int : 442 ms Normal sinus rhythm. Septal infarct (cited on or before 03-SEP-2015) Abnormal ECG When compared with ECG of 20-JAN-2017 08:14, ST elevation now present in Lateral leads Nonspecific T wave abnormality now evident in Anterior leads Unconfirmed Result
[2017-03-29 08:18] LABS: AGAP 12; BUN 5 mg/dL (8-22); CALCIUM 8.1 mg/dL (8.8-10.2); CHLORIDE 92 mmol/L (98-107); COSMO 259; POTASSIUM 3.8 mmol/L (3.5-5.1); SODIUM 131 mmol/L (136-145); TCO2 27 mmol/L (25-35)
[2017-03-29 08:43] LABS: BANDS 2 % (0-1); MONO 6 % (1-9)
[2017-03-29 08:44] LABS: HYPOCHROM 2+
[2017-03-29] MEDS: MUCINEX PO SCH ×2 (09:20→09:39)
[2017-03-29] MEDS: NICODERM PATCH TD SCH (09:20)
[2017-03-29] MEDS: MILK OF MAGNESIA PO SCH (09:20)
[2017-03-29] MEDS: LANOXIN PO SCH (09:20)
[2017-03-29] MEDS: CORDARONE PEG SCH (10:28)
[2017-03-29] MEDS: BLISTEX MEDICATED BERRY LIP BALM TOP PRN ×2 (10:28→15:22)
[2017-03-29] MEDS ORDERED: NASONEX NASAL SPRAY NAS ONE (12:46)
[2017-03-29] MEDS ORDERED: LOVENOX SUBQ SCH (16:38)
[2017-03-29] MEDS ORDERED: NS NEB INH SCH (16:45)
--- NOTE | 2017-03-29 17:20 | PROGRESS NOTE ---
DATE: 03/29/2017 SUBJECTIVE: The patient states that he feels a lot better today. He is coughing up some whitish colored sputum. OBJECTIVE: Vital Signs: Temperature 98 degrees, blood pressure 136/72, heart rate 70, respirations 18, O2 saturations 96% on room air. General: This is a chronically ill-appearing, elderly male, lying in bed, in no acute distress. Head: Normocephalic, atraumatic. Heart: S1, S2. Normal. Regular rate and rhythm. Lungs: Clear to auscultation bilaterally. No crackles. No rales. No wheezing. Abdomen: Positive bowel sounds. There is a feeding tube in place. Extremities: No edema, no cyanosis, no calf tenderness. Neurologic: The patient is alert and oriented x3. LABORATORY: White blood cell count 7.6, hemoglobin 9.1, hematocrit 27, platelets 224,000. Sodium 131, potassium 3.8, chloride 92, CO2 27. BUN 5. Creatinine 0.3. Glucose 81. ASSESSMENT AND PLAN: 1. Hyponatremia. This continues to improve. The patient's sodium today is 131. We will discontinue the IV fluids and monitor the patient's sodium closely. 2. Acute bronchitis. Continue on doxycycline. We will also add DuoNebs and Mucomyst. 3. Stage IV esophageal cancer. Continue on the Dilaudid AGRICULTURAL EDUCATION TEACHER plus Percocet for breakthrough pain. 4. Paroxysmal atrial fibrillation. Continue on amiodarone and digoxin. 5. Tobacco dependence. Continue on the NicoDerm patch. 6. Stage IV sacral decubitus ulcer. Wound care is following. 7. Deep vein thrombosis prophylaxis. We will start the patient on Lovenox. cc: Marianne Hudson MD [facility]
[2017-03-29] MEDS: REMERON PO SCH (22:01)
[2017-03-29] MEDS: RESTORIL PO SCH (22:01)
[2017-03-29] MEDS: MUCOMYST 20% INH SCH (22:54)
[2017-03-29] MEDS: XOPENEX NEB INH SCH (22:54)
[2017-03-30] MEDS: PERCOCET-5 PO PRN ×3 (02:15→10:40)
[2017-03-30] MEDS: XOPENEX NEB INH SCH ×3 (03:23→15:23)
[2017-03-30] MEDS: DOXYCYCLINE 100 MG in NS 250 ML IV SCH (03:58)
[2017-03-30] MEDS: PHENERGAN PO PRN (03:58)
[2017-03-30] MEDS: VALIUM PEG PRN ×2 (05:39→13:46)
[2017-03-30 06:37] LABS: HEMATOCRIT 27.4 % (42.0-52.0); HEMOGLOBIN 8.8 g/dL (14.0-18.0); MCH 29.3 PG (27-31); MCHC 32.1 g/dL (33-37); MCV 91.3 FL (81-99); MPV 9.2 FL (7.4-10.4)
[2017-03-30] MEDS: MILK OF MAGNESIA PO SCH ×2 (06:52→09:01)
[2017-03-30 07:06] LABS: AGAP 9; BUN 5 mg/dL (8-22); CALCIUM 8.2 mg/dL (8.8-10.2); CHLORIDE 95 mmol/L (98-107); COSMO 262; POTASSIUM 3.4 mmol/L (3.5-5.1); SODIUM 132 mmol/L (136-145); TCO2 28 mmol/L (25-35)
[2017-03-30 08:15] LABS: MAGNESIUM 1.8 mg/dL (1.5-2.7)
[2017-03-30] MEDS: NICODERM PATCH TD SCH (09:00)
[2017-03-30] MEDS: LANOXIN PO SCH (09:00)
[2017-03-30] MEDS ORDERED: NASONEX NASAL SPRAY NAS SCH (09:00)
[2017-03-30] MEDS: CORDARONE PEG SCH (09:01)
[2017-03-30] MEDS: ZOFRAN IV PRN (09:09)
[2017-03-30] MEDS: MUCOMYST 20% INH SCH (10:53)
[2017-03-30 13:45] VITALS: BP 126/74
--- NOTE | 2017-03-30 15:30 | DISCHARGE SUMMARY ---
ADMISSION DATE: 03/28/2017 DISCHARGE DATE: 03/30/2017 CONSULTATIONS: None. PERTINENT PROCEDURE: Chest x-ray showed no pneumonia. DISCHARGE DIAGNOSES: 1. Hyponatremia. Improved. 2. Acute bronchitis, continue doxycycline. 3. Stage IV esophageal cancer. Continue patient's home Dilaudid BACKUP ENGINEER plus p.o. pain medicine for breakthrough pain. 4. Paroxysmal atrial fibrillation. Continue on amiodarone and digoxin. 5. Tobacco dependence. Smoking cessation was discussed with the patient. However, he has no desire to quit. 6. Stage IV sacral decubitus ulcer being followed by Wound Care. DISPOSITION: Discharge back home with his home health, [facility] and follow up with Dr. Guevara and his PCP in 1 week. HOSPITAL COURSE: Mr. Ashley is a 52-year-old male with metastatic esophageal cancer with metastasis to the right hip bone. He had been receiving outpatient radiation treatments by Dr. June. Also sees Dr. Guevara. He uses a Dilaudid BACKUP ENGINEER pump at home. He has ostomy G tubes for feedings, but he is ill-appearing. He reported to the ED for a cough for last few days as well as congestion and rhinorrhea. Chest x-ray did not show any infiltrates. Laboratory data showed anemia and a sodium of 119. The patient was admitted to the ICU for evaluation and treatment. He was started on IV fluids with close monitor of his sodium levels every 6 hours. He was continued on his home Dilaudid BACKUP ENGINEER as well as p.o. pain medication for breakthrough pain. In consult to his oncologist, it was discussed with him smoking cessation. However, he does not want to quit. The patient was treated for acute bronchitis with doxycycline. Also added DuoNebs as well as Mucomyst. The patient's sodium has gradually improved and is back to his baseline around 132. The patient is stable for discharge home today. VITAL SIGNS: Temperature is 97.3 degrees, heart rate 78, respirations 20, blood pressure 126/74, O2 is 99% on room air. DIET: The patient will resume his previous diet. DISCHARGE MEDICATIONS: 1. Amiodarone 200 mg p.o. as directed. 2. Digoxin 125 mcg p.o. daily. 3. Doxycycline 100 mg p.o. b.i.d. for 7 days. 4. Dilaudid BACKUP ENGINEER 6 mg IV as directed p.r.n. 5. Milk of Magnesia 30 mL p.o. daily. 6. Remeron 30 mg p.o. at bedtime. 7. Nasonex nasal spray, 1 spray nasal daily. 8. Zofran ODT 1 tab p.o. q.4 hours p.r.n. FOLLOWUP: The patient is being discharged [facility]. He will follow up with his oncologist in 2 weeks as well as his primary care physician, Devika Colon MD. The patient will need to continue to finish his full course of antibiotics. Return to the ED for any worsening of symptoms. TIME SPENT DISCHARGIN minutes. Dictated by GORDON Parker for Ganesh Overton MD cc: MD Devika Grady
[2017-03-30] MEDS ORDERED: DOXYCYCLINE PO SCH (21:00)
== END 2017-03-30 15:50 | disposition home health service (06) ==
LOC: ED 21:27 → SUATTDRO 03-28 00:12 → ICU 03-28 00:12 → 3N 03-29 11:53
PROVIDERS: ATTEND Internal Medicine